=== PATIENT | female | born 1985 | race Caucasian/White ===

== ENCOUNTER → 2016-06-23 | Outpatient (CLI) | payer OTHER ==
--- NOTE | 2016-06-23 19:53 | DX ---
PA and Lateral Chest June 23, 2016 Clinical Indication: Follow up pneumonia. Comparison: April 21, 2016. Findings: There has been some overall improvement in the patchy bilateral lower lobar consolidations . There are still some mild increased reticulonodular densities as well as some linear areas of scar ring. Mild blunting is noted at the costophrenic angle laterally on the left. Impression: Persistent areas of bibasilar patchy consolidation. There has been significant improvem ent compared to April 21, 2016. Repeat chest x-ray follow up is recommended.
== END ==
LOC: FIMAGING 16:56
PROVIDERS: ATTEND Internal Medicine Pulmonary Disease
DX: J18.9 Pneumonia, unspecified organism (principal)

== ENCOUNTER 2016-07-08 21:39 | Inpatient (IN) | payer OTHER ==
[2016-07-08] MEDS ORDERED: NS 1,000 ML IV ONE (22:25)
--- NOTE | 2016-07-08 22:25 | EDPHY ---
HPI/HX/ROS/PE/MDM Narrative: CHIEF COMPLAINT: Fever, cough HPI: The patient is a 30-year-old female with extensive past medical history significant for autoimmune disease, possibly sarcoid, as well as multiple episodes of pneumonia, most recently hospitalized in April of last year. Patient complains of overall malaise, cough, low oxygen readings at home as well as tachycardia. She states that she coughed up a small amount of blood which is typical for her when she gets pneumonia. She is followed by Dr. Bo Grullon from Infectious Disease as well as Dr. Dotson. There is some disagreement as to whether her condition represents sarcoid or possibly immune deficiency. The patient is currently on a very low dose of prednisone and the plan is to fully wean her off of this REVIEW OF SYSTEMS: Aside from elements discussed in the HPI, a comprehensive 10-point review of systems was reviewed and is negative. PMH: Includes multiple episodes of pneumonia, possibly sarcoid or immunodeficiency. Past surgical history includes chest tube placement. Family history unremarkable. SOCIAL HISTORY: . 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 PHYSICAL EXAM: General:Patient is alert, in no acute distress. ENT:Eyes are normal to inspection. ENT inspection normal. Neck: Normal inspection. Full range of motion. Respiratory:No respiratory distress. Crackles are audible in the left posterior lobe. Cardiovascular: Tachycardic rate. Strong peripheral pulses. Normal cap refill. Abdomen:The abdomen is nontender to palpation. There are no peritoneal signs. There are normal bowel sounds. Back: Normal to inspection. No tenderness to palpation. Skin: Normal color. No rash. Warm and dry. Extremities: Normal appearance. Full range of motion. Neuro: Oriented x3. Normal motor function. Normal sensory function. ED Course: Patient admitted lip to hospitalist service at 10:40 p.m.. Based on normal lactic acid, lack of hypotension and lack of clear lab abnormalities from baseline, I do not think this represents severe sepsis or septic shock at this time. MDM: This patient presents with hypoxia and tachycardia in the setting of known immunosuppression, possible sarcoid and multiple episodes of multifocal pneumonia. Her chest x-ray is markedly positive and I suspect that pneumonia is the underlying etiology. Thankfully, her lactate is normal. She requires admission the hospital for further workup and treatment. I had extensive discussion with the hospitalist regarding possible stress dose steroids and antibiotic selection. We will defer both of these decisions to her. The patient is immunocompromised and we will need to consult ID to determine the appropriate antibiotic. - Data Points Laboratory Results: Laboratory Results 07/08/16 22:00 07/08/16 22:00 07/08/16 22:00 WBC 5.87 10^3/uL (3.80-9.50) RBC 4.59 10^6/uL (4.18-5.33) Hgb 12.0 L g/dL (12.6-16.3) Hct 37.5 L % (38.0-47.0) MCV 81.7 fL (81.5-99.8) MCH 26.1 L pg (27.9-34.1) MCHC 32.0 L g/dL (32.4-36.7) RDW 14.7 % (11.5-15.2) Plt Count 82 L 10^3/uL (150-400) MPV 11.3 fL (8.7-11.7) Neut % (Auto) Not Reported Lymph % (Auto) Not Reported [place] % (Auto) Not Reported Eos % (Auto) Not Reported Baso % (Auto) Not Reported Nucleat RBC Rel Count 0.0 % (0.0-0.2) Absolute Neuts (auto) Not Reported Absolute Lymphs (auto) Not Reported Absolute Monos (auto) Not Reported Absolute Eos (auto) Not Reported Absolute Basos (auto) Not Reported Absolute Nucleated RBC 0.00 10^3/uL (0-0.01) Immature Gran % Not Reported Seg Neutrophils % 36 % Band Neutrophils % 33 % Lymphocytes % 21 % Monocytes % 10 % Immature Gran # Not Reported Absolute Seg Neuts 2.11 10^/uL (1.70-6.50) Absolute Band Neuts 1.94 H 10^3/uL (0.00-0.70) Absolute Lymphocytes 1.23 10^3/uL (1.00-3.00) Absolute Monocytes 0.59 10^3/uL (0.30-0.80) RBC/WBC/PLT Morphology NORMAL (NORMAL) Platelet Estimate DECREASED L (ADEQ) VBG Lactic Acid 1.2 mmol/L (0.7-2.1) Sodium 132 L mEq/L (134-144) Potassium 3.6 mEq/L (3.5-5.2) Chloride 104 mEq/L (97-110) Carbon Dioxide 22 mEq/l (22-31) Anion Gap 6 mEq/L (8-16) BUN 16 mg/dL (7-23) Creatinine 0.9 mg/dL (0.6-1.0) Estimated GFR > 60 Glucose 111 H mg/dL (70-100) Calcium 8.3 L mg/dL (8.5-10.4) Total Bilirubin 1.2 mg/dL (0.1-1.4) Influenza Typ A,B (DFA) NEGATIVE FOR FLU (NEGATIVE) Medications Given: Discontinued Medications Sodium Chloride (Ns) 1,000 mls @ 0 mls/hr IV ONCE ONE PRN Reason: Wide Open Stop: 07/08/16 22:26 Last Admin: 07/08/16 22:29 Dose: 1,000 mls General Time Seen by Provider: 07/08/16 21:54 Initial Vital Signs: Initial Vital Signs Temperature (C) 37.3 C 07/08/16 21:55 Heart Rate 124 H 07/08/16 21:55 Respiratory Rate 18 07/08/16 21:55 Blood Pressure 119/79 07/08/16 21:55 O2 Sat (%) 92 07/08/16 21:55 O2 Delivery Mode Room Air O2 (L/minute) 2 Allergies/Adverse Reactions: No Known Allergies Allergy (Unverified 09/13/10 11:48) Home Medications: Medication Instructions Recorded Prednisone 07/08/16 Departure - Departure Disposition: [facility] In[facility] Acute Clinical Impression: Pneumonia, ESBL (extended spectrum beta-lactamase) producing bacteria infection , Hypoxia, Sarcoidosis Condition: Fair
[2016-07-08 22:33] LABS: ANION GAP 6 mEq/L (8-16); BILIRUBIN,TOTAL 1.2 mg/dL (0.1-1.4); CALCIUM 8.3 mg/dL (8.5-10.4); CARBON DIOXIDE 22 mEq/l (22-31); CHLORIDE 104 mEq/L (97-110); CREATININE 0.9 mg/dL (0.6-1.0); GLOMERULAR FILTRATION RATE > 60; GLUCOSE 111 mg/dL (70-100); POTASSIUM 3.6 mEq/L (3.5-5.2); SODIUM 132 mEq/L (134-144)
[2016-07-08 22:35] LABS: ADD MORPH? NO; ATYPICAL LYMPHOCYTE FLAG 30 (0-99); FRAGMENT RBC FLAG 0 (0-99); HEMATOCRIT 37.5 % (38.0-47.0); LIPEMIA HEMOLYSIS FLAG 80 (0-99); MEAN CELL HEMOGLOBIN 26.1 pg (27.9-34.1); MEAN CELL VOLUME 81.7 fL (81.5-99.8); MEAN PLATELET VOLUME 11.3 fL (8.7-11.7); PLATELET CLUMPS FLAG 20 (0-99); PLATELET COUNT 82 10^3/uL (150-400); RED BLOOD CELL COUNT 4.59 10^6/uL (4.18-5.33); RED CELL DISTRIBUTION WIDTH 14.7 % (11.5-15.2)
[2016-07-08 22:36] LABS: LEFT SHIFT FLG 270 (0-99)
[2016-07-08 22:37] LABS: ADD DIFF? YES; ADD SCAN? NO
--- NOTE | 2016-07-08 22:40 | DX ---
Chest, PA and lateral. History: Meet sepsis criteria, suspected infection. Shortness of breath. Comparison: June 23, 2016. Findings: Airspace consolidation is seen in both lungs which is particularly increased anteriorly in the right upper lobe. There is also more focal consolidation superiorly in the left lower lobe. There is increasing perihilar infiltrate and peribronchial wall thickening. No evidence for pleural effusi on. Heart size is within normal limits. No significant osseous abnormality. Impression: Worsening bilateral pneumonia with underlying bronchitis.
[2016-07-08 22:59] LABS: PLATELET ESTIMATE DECREASED (ADEQ)
[2016-07-08 23:04] LABS: COLOR YELLOW; LEUKOCYTE ESTERASE,URINE 2+ (NEGATIVE); NITRITE,URINE NEGATIVE (NEGATIVE)
[2016-07-08 23:06] LABS: BACTERIA 4+ /hpf (NONE SEEN); MUCUS TRACE /lpf (NONE-1+); WBC,URINE 50-182 /hpf (0-3)
[2016-07-08] MEDS ORDERED: HYDROCODONE/APAP 5/325 TAB PO PRN (23:20)
[2016-07-08] MEDS ORDERED: ALBUTEROL 3 ML DEYVIAL IH PRN (23:20)
[2016-07-08] MEDS ORDERED: ONDANSETRON 4 MG/2 ML VIAL IVP PRN (23:20)
[2016-07-08] MEDS ORDERED: ONDANSETRON DISINTEGRATING 4 MG TAB PO PRN (23:20)
[2016-07-08] MEDS ORDERED: ACETAMINOPHEN 500 MG TAB PO PRN (23:20)
[2016-07-09] MEDS: PIPERACILLIN/TAZO 4.5 GM/DEX 100 ML IV SCH ×4 (00:24→18:17)
[2016-07-09 00:40] LABS: BASE EXCESS -2.8 mEq/L (-2.5-2.5); BICARBONATE 19 mEq/L (22-26); MEASURED OXYGEN SATURATION 91 % (92-95); PCO2 27 mmHg (34-38); PO2 60 mmHg (65-75); TCO2 20 mEq/L (23-27)
[2016-07-09] MEDS ORDERED: IOPAMIDOL (ISOVUE 370) 100 ML BTL IV ONE ×2 (00:57→01:45)
[2016-07-09] MEDS ORDERED: VANCOMYCIN 1 GM/NS 250 ML BAG IV ONE (00:58)
[2016-07-09] MEDS ORDERED: VANCOMYCIN HCL/NORMAL SALINE 250 ML IV ONE (01:30)
[2016-07-09] MEDS ORDERED: ACETAMINOPHEN 500 MG TAB ONE (01:56)
[2016-07-09] MEDS ORDERED: ACETAMINOPHEN 500 MG TAB PO ONE (01:58)
--- NOTE | 2016-07-09 03:10 | PDGENHP ---
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 patient states symptoms started on the day of presentation, she woke up feeling generally unwell. As the day progressed she began noticing shortness of breath with minimal exertion, she developed a productive cough and any evening also noted if fever at home. Cough was productive of phlegm, which then became blood tinged over the course of the day. She felt her symptoms were consistent with her previous pneumonia so she decided to come to the ED for further evaluation. She does note pleuritic type mid-back pain, worse with deep inspiration, but denies any headache, dizziness, chest pain, palpitations, nausea, vomiting, diarrhea or dysuria/urinary symptoms. Patient was last hospitalized in April, for pneumonia. At that time she completed about a 1 month long course of antibiotics. 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 For treatment of her sarcoid she has been maintained on prednisone 4 mg every other day. on arrival to the ED patient was afebrile, slightly tachycardic and hypoxic but hemodynamically stable. Labs revealed no leukocytosis, but bandemia was present, mild hyponatremia, but otherwise normal BMP. Rapid flu swab was negative. Chest x-ray revealed an extensive multifocal pneumonia. she was then admitted to the hospitalist service for further management. Upon my evaluation patient was complaining of pleuritic-type back pain, she was tachycardic and also noted scant hemoptysis in her sputum. Given this D-dimer was checked, which was positive. CT angio was then ordered to rule out acute PE and to further evaluate the extent of and characterize her pneumonia. History Information - Allergies/Home Medication List Allergies/Adverse Reactions: No Known Allergies Allergy (Unverified 09/13/10 11:48) Home Medications: Prednisone 07/08/16 [Last Taken Unknown] I have personally reviewed and updated: family history, medical history, social history, surgical history - Past Medical History Additional medical history: sarcoidosis, diagnosed in childhood, pulmonary an extrapulmonary manifestations. immunocompromised state, exact diagnosis pending. 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 Lives with her and is independent in ADLs. Review of Systems ROS: 10pt was reviewed & negative except for what was stated in HPI & below Physical Exam Temp Pulse Resp BP Pulse Ox 36.9 C 113 H 17 126/77 H 91 L 07/09/16 02:12 07/09/16 02:12 07/09/16 02:12 07/09/16 02:12 07/09/16 02:12 O2 (L/minute) 3 Constitutional: no apparent distress, appears nourished, not in pain Eyes: PERRL, anicteric sclera, EOMI Ears, Nose, Mouth, Throat: moist mucous membranes, hearing normal, ears appear normal, no oral mucosal ulcers Cardiovascular: regular rate and rhythym, no murmur, rub, or gallop, pulses symmetric bilaterally, tachycardia, No JVD, No edema Peripheral Pulses: 2+: dorsalis-pedis (R), dorsalis-pedis (L) Respiratory: rhonchi (R>L lung roper), other ( mild use of accessary muscles) Gastrointestinal: normoactive bowel sounds, soft, non-tender abdomen, no palpable masses Genitourinary: no bladder fullness, no bladder tenderness Skin: warm, normal color, no rashes or abrasions, no fluctuance, no induration, No mottled Neurologic: AAOx3, sensation intact bilaterally, CN II-XII Intact, No weakness, No numbness Psychiatric: interacting appropriately, not anxious, not encephalopathic, thought process linear Lab Data & Imaging Review 07/08/16 22:00 07/08/16 22:00 WBC 5.87 10^3/uL (3.80-9.50) 07/08/16 22:00 RBC 4.59 10^6/uL (4.18-5.33) 07/08/16 22:00 Hgb 12.0 g/dL (12.6-16.3) L 07/08/16 22:00 Hct 37.5 % (38.0-47.0) L 07/08/16 22:00 MCV 81.7 fL (81.5-99.8) 07/08/16 22:00 MCH 26.1 pg (27.9-34.1) L 07/08/16 22:00 MCHC 32.0 g/dL (32.4-36.7) L 07/08/16 22:00 RDW 14.7 % (11.5-15.2) 07/08/16 22:00 Plt Count 82 10^3/uL (150-400) L 07/08/16 22:00 MPV 11.3 fL (8.7-11.7) 07/08/16 22:00 Neut % (Auto) Not Reported 07/08/16 22:00 Lymph % (Auto) Not Reported 07/08/16 22:00 [place] % (Auto) Not Reported 07/08/16 22:00 Eos % (Auto) Not Reported 07/08/16 22:00 Baso % (Auto) Not Reported 07/08/16 22:00 Nucleat RBC Rel Count 0.0 % (0.0-0.2) 07/08/16 22:00 Absolute Neuts (auto) Not Reported 07/08/16 22:00 Absolute Lymphs (auto) Not Reported 07/08/16 22:00 Absolute Monos (auto) Not Reported 07/08/16 22:00 Absolute Eos (auto) Not Reported 07/08/16 22:00 Absolute Basos (auto) Not Reported 07/08/16 22:00 Absolute Nucleated RBC 0.00 10^3/uL (0-0.01) 07/08/16 22:00 Immature Gran % Not Reported 07/08/16 22:00 Seg Neutrophils % 36 % 07/08/16 22:00 Band Neutrophils % 33 % 07/08/16 22:00 Lymphocytes % 21 % 07/08/16 22:00 Monocytes % 10 % 07/08/16 22:00 Immature Gran # Not Reported 07/08/16 22:00 Absolute Seg Neuts 2.11 10^/uL (1.70-6.50) 07/08/16 22:00 Absolute Band Neuts 1.94 10^3/uL (0.00-0.70) H 07/08/16 22:00 Absolute Lymphocytes 1.23 10^3/uL (1.00-3.00) 07/08/16 22:00 Absolute Monocytes 0.59 10^3/uL (0.30-0.80) 07/08/16 22:00 RBC/WBC/PLT Morphology NORMAL (NORMAL) 07/08/16 22:00 Platelet Estimate DECREASED (ADEQ) L 07/08/16 22:00 D-Dimer 1.58 ug/mLFEU (0.00-0.50) H 07/08/16 22:09 Puncture Site NONE GIVEN 07/09/16 00:30 Patient Temperature 37.0 DEGREES 07/09/16 00:30 pCO2 27 mmHg (34-38) L 07/09/16 00:30 pO2 60 mmHg (65-75) L 07/09/16 00:30 Total CO2 20 mEq/L (23-27) L 07/09/16 00:30 ABG pH 7.48 (7.35-7.45) H 07/09/16 00:30 ABG O2 Saturation 91 % (92-95) L 07/09/16 00:30 ABG Base Excess -2.8 mEq/L (-2.5-2.5) L 07/09/16 00:30 VBG Lactic Acid 1.2 mmol/L (0.7-2.1) 07/08/16 22:00 Sodium 132 mEq/L (134-144) L 07/08/16 22:00 Potassium 3.6 mEq/L (3.5-5.2) 07/08/16 22:00 Chloride 104 mEq/L (97-110) 07/08/16 22:00 Carbon Dioxide 22 mEq/l (22-31) 07/08/16 22:00 Bicarbonate 19 mEq/L (22-26) L 07/09/16 00:30 Anion Gap 6 mEq/L (8-16) 07/08/16 22:00 BUN 16 mg/dL (7-23) 07/08/16 22:00 Creatinine 0.9 mg/dL (0.6-1.0) 07/08/16 22:00 Estimated GFR > 60 07/08/16 22:00 Glucose 111 mg/dL (70-100) H 07/08/16 22:00 Calcium 8.3 mg/dL (8.5-10.4) L 07/08/16 22:00 Total Bilirubin 1.2 mg/dL (0.1-1.4) 07/08/16 22:00 Urine Color YELLOW 07/08/16 22:58 Urine Appearance HAZY 07/08/16 22:58 Urine pH 5.0 (5.0-7.5) 07/08/16 22:58 Ur Specific [place] 1.012 (1.002-1.030) 07/08/16 22:58 Urine Protein NEGATIVE (NEGATIVE) 07/08/16 22:58 Urine Ketones NEGATIVE (NEGATIVE) 07/08/16 22:58 Urine Blood NEGATIVE (NEGATIVE) 07/08/16 22:58 Urine Nitrate NEGATIVE (NEGATIVE) 07/08/16 22:58 Urine Bilirubin NEGATIVE (NEGATIVE) 07/08/16 22:58 Urine Urobilinogen NEGATIVE EU (0.2-1.0) 07/08/16 22:58 Ur Leukocyte Esterase 2+ (NEGATIVE) H 07/08/16 22:58 Urine RBC 1-3 /hpf (0-3) 07/08/16 22:58 Urine WBC 50-182 /hpf (0-3) H 07/08/16 22:58 Ur Epithelial Cells TRACE /lpf (NONE-1+) 07/08/16 22:58 Urine Bacteria 4+ /hpf (NONE SEEN) H 07/08/16 22:58 Urine Mucus TRACE /lpf (NONE-1+) 07/08/16 22:58 Urine Glucose NEGATIVE (NEGATIVE) 07/08/16 22:58 Urine Test NEGATIVE 07/08/16 22:58 Influenza Typ A,B (DFA) NEGATIVE FOR FLU (NEGATIVE) 07/08/16 22:00 Visualized and Interpreted Chest x-ray results: Yes Chest X-Ray results: other (dense consolidation in RUL, LLL) Visualized and Interpreted imaging results: Yes Interpretation: CT chest: no acute PE; multifocal pna with no evidence of empyema Assessment & Plan Assessment: patient is a 30-year-old female with a history of sarcoidosis, immunocompromised state, recurrent pneumonia who presents to the ED complaining of fever, cough, shortness of breath. His ED workup reveals extensive bilateral , multifocal pneumonia. Plan: # sepsis secondary to multilobar pneumonia On presentation patient was tachycardic, tachypneic and with evidence of infection on chest x-ray, consistent with sepsis. based on chest x-ray and CT findings, distribution of infiltrates is different from previous pneumonias. given patient's immunocompromised state, we will cover broadly for healthcare associated pneumonia (Presumed gram-negative versus MRSA pneumonia). - f/u blood and sputum cultures - check legionella, strep pneu ag - consult pulmonary and ID - Vanc/Zosyn coverage - IVF hydration: NS @ 100 cc/hr - check AM lactic acid # acute hypoxemic respiratory failure Patient hypoxic on presentation and ABG confirms hypoxemia. Will maintain NC, can upgrade to high-flow NC or BIPAP if necessary. # thrombocytopenia Chronic, appears to be at baseline based on previous admission levels. Will monitor for signs of bleeding. # sarcoidosis On chronic low dose prednisone. Currently hemodynamically stable, will hold off on stress dose steroids at this time. If any evidence of decompensation, will increase steroid dosing. # dispo: patient will likely require > 2 MN stay given the extensive multilobar pneumonia and acute respiratory failure # gen: Regular diet DVT ppx: SCDs, will hold lovenox given thrombocytopenia Full code
[2016-07-09 05:56] LABS: ADD MORPH? NO; ATYPICAL LYMPHOCYTE FLAG 30 (0-99); FRAGMENT RBC FLAG 0 (0-99); HEMATOCRIT 31.7 % (38.0-47.0); HEMOGLOBIN 10.5 g/dL (12.6-16.3); LIPEMIA HEMOLYSIS FLAG 80 (0-99); MEAN CELL HEMOGLOBIN 27.2 pg (27.9-34.1); MEAN CELL HEMOGLOBIN CONCENTR. 33.1 g/dL (32.4-36.7); MEAN CELL VOLUME 82.1 fL (81.5-99.8); MEAN PLATELET VOLUME 12.4 fL (8.7-11.7); PLATELET CLUMPS FLAG 20 (0-99); PLATELET COUNT 75 10^3/uL (150-400); RED BLOOD CELL COUNT 3.86 10^6/uL (4.18-5.33); RED CELL DISTRIBUTION WIDTH 14.8 % (11.5-15.2)
[2016-07-09 06:09] LABS: ADD DIFF? YES; ADD SCAN? NO; LEFT SHIFT FLG 130 (0-99)
[2016-07-09 06:10] LABS: INR 1.37 (0.83-1.16); PROTIME(PATIENT) 16.9 SEC (12.0-15.0)
[2016-07-09 06:11] LABS: APTT 36.8 SEC (23.0-38.0)
[2016-07-09 06:13] LABS: ANION GAP 7 mEq/L (8-16); CALCIUM 7.6 mg/dL (8.5-10.4); CARBON DIOXIDE 23 mEq/l (22-31); CHLORIDE 106 mEq/L (97-110); GLOMERULAR FILTRATION RATE > 60; GLUCOSE 95 mg/dL (70-100); MAGNESIUM 1.5 mg/dL (1.6-2.3); POTASSIUM 3.2 mEq/L (3.5-5.2); SODIUM 136 mEq/L (134-144)
[2016-07-09] MEDS ORDERED: PROTOCOL MAGNESIUM 1 DOSE IV PRN (06:43)
[2016-07-09] MEDS ORDERED: PROTOCOL POTASSIUM 1 DOSE MISC PRN (06:43)
[2016-07-09] MEDS ORDERED: Herbals/Supplements -Info Only PO SCH (09:00)
--- NOTE | 2016-07-09 09:32 | CT ---
CT Chest Angiogram July 09, 2016 at 1:41 a.m. Indication: Bronchopneumonia and history of sarcoidosis. Evaluate for underlying pulmonary embolism. Technique: Thinly collimated multidetector helical CT imaging was performed through the chest while 150 mL of [id number]-[id number] were injected intravenously without complication. The images were then transfer red to an independent workstation where multiplanar reconstructions were performed. Dose reduction te chniques were utilized. Comparison: CT angiogram of the chest dated April 17, 2016 and two views of the chest performed fou r hours earlier on July 08, 2016. Findings CT chest angiogram: The pulmonary arterial system is well opacified. No intraluminal filling defect s to suggest acute or chronic thrombopulmonary embolic disease. The thoracic aorta is normal caliber . No aneurysm or dissection. CT chest: Dense multilobar airspace consolidation principally involves the posterior segment right up per lobe, posterior segment left lower lobe, and bibasilar lower lobes, worse right than left. No cav itation or pleural effusion. Moderate interstitial edema as evidenced by smooth interlobar septal thi ckening, thickening of the fissures, and diffuse groundglass opacities. Scattered noncalcified pulmonary nodules throughout the right and left lung, lymphadenopathy througho ut the superior mediastinum, aorticopulmonary window, subcarinal chain and bilateral pulmonary jerilyn, and moderate splenomegaly are all unchanged and consistent with known diagnosis of sarcoidosis. The heart size is normal. No pericardial effusion. The thoracic aorta is normal. No bone lesions. Impression: 1. No evidence of thrombopulmonary embolic disease. 2. Dense multifocal bronchopneumonia, worse in the right upper lobe. No evidence of pulmonary abscess or empyema. 3. Mild interstitial edema. 4. Features of stage II sarcoidosis, similar to April 2016. The study was performed as an emergency on-call case and discussed by telephone with Dr. Landin at 2:05 a.m. The final interpretation is concordant with the original communication.
[2016-07-09] MEDS: predniSONE 5 MG TAB PO SCH (09:57)
[2016-07-09] MEDS: MULTIVITAMINS 1 EACH TAB PO SCH (09:58)
[2016-07-09] MEDS: OMEGA-3 FATTY ACIDS 1,000 MG CAP PO SCH (09:59)
[2016-07-09] MEDS ORDERED: MOXIFLOXACIN 400 MG TAB PO SCH (10:00)
[2016-07-09 10:07] LABS: PLATELET ESTIMATE DECREASED (ADEQ)
[2016-07-09 10:09] LABS: ELLIPTOCYTES 1+
--- NOTE | 2016-07-09 11:00 | GCON ---
[f rep st] CONSULTATION INFECTIOUS DISEASE CONSULT. DATE OF CONSULTATION: 07/09/2016 REFERRING PHYSICIAN: Libertad Landin MD REASON FOR CONSULTATION: To assist in the management of this 30-year-old female well known to our service, admitted for multilobar pneumonia. HISTORY OF PRESENT ILLNESS: Anastasiya is a 30-year-old female who previous medical history is notable for the followin. Sarcoidosis. As I understand it, the patient was diagnosed with sarcoid at the age of 14 at [facility] when she presented with fevers, lymphadenopathy, and splenomegaly. The diagnosis was made by a lymph node biopsy in her groin by report. She has been followed over at [facility] since then. However, the patient tells me that this diagnosis is in question presently as Dr. Dotson, whom she has been seeing for an immunoglobulin deficiency, does not feel that she really has this diagnosis. The patient is on low dose prednisone 4 mg every other day chronically. 2. History of skin and soft tissue infection secondary to MRSA 2015. 3. Recent invasive pneumococcal pneumonia with bloodstream infection, April 2016. 4. Hypogammaglobulinemia and elevated levels of IgM diagnosed during her hospitalization in April. 5. History of recurrent vaginal candidiasis. 6. History of ESBL E. coli urinary tract infection. 7. Thrombocytopenia. Regarding her present issues, the patient states that she was in her usual state of health until yesterday when she felt the sudden onset of fever to 102.5 and significant fatigue. Later in the afternoon, she began to cough, and later last evening she noted that her oxygen saturation was down to 91% with an elevated heart rate. The patient also reports an episode of rigors yesterday morning, for which she took Motrin and rigors resolved. Because of the hypoxemia and elevated heart rate and new onset of blood-tinged sputum and development of a productive cough, the patient came to [facility] for further evaluation and treatment. Of note, the patient told me "whenever I do any activity that is strenuous, this happens to me." She states that in April when she was last admitted for pneumococcal pneumonia and bacteremia, she had "danced really hard." This time, the patient tells me that she recently closed on a brand new home in [place] 2 days ago, and was up late on Sunday night, and moving all day yesterday, heavily exerting herself. She strongly feels that this has been influential in the development of this illness. At [facility], the patient had a temperature of 37.3 with an oxygen saturation of 89% on room air. Blood pressure was stable. Because a D- dimer was positive, she underwent a CT angio of her chest which revealed no evidence of thromboembolic pulmonary disease, but revealed dense multifocal bronchopneumonia, worse in the right upper lobe, with no evidence of cavitary lesions, or empyema or pleural effusions. The patient was admitted to the hospitalist service and started on broad- spectrum antibiotics in the form of vancomycin and Zosyn. I am now asked to assist in her management. Flu DFA was negative. The patient says she feels much better today. She states that again this was an abrupt onset of symptoms. She denies any antecedent night sweats, weight loss, or other more insidious presentation. She denies any myalgias, antecedent upper respiratory infection, sore throat, or other. Please see below regarding negative exposure history. She denies any diarrhea, nausea, vomiting or other. REVIEW OF SYSTEMS: From the increased productive cough and mild headache, 10 systems are reviewed and all are negative. PREVIOUS MEDICAL HISTORY: As outlined above. ALLERGIES: No known drug allergies. SOCIAL HISTORY: The patient works in the [employer] department. 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 She recently purchased a [employer] in [place]. They have no pets. The patient states that her was sick 2 weeks ago with a cold, but she did not get this illness. No tobacco. No exposure to secondhand smoke and no electronic cigarettes. No exposure to hot tubs, Jacuzzis, saunas, and no recent motel or hotel stays. No exposure to birds. She does not do any trail running. No other exposure to animals. She is not around small children. No recent travel within or outside the [place]. No exposure to mice or rodent droppings. She did not get a flu vaccine this year. FAMILY HISTORY: Unremarkable. MEDICATIONS: Include prednisone 4 mg every other day. If she is also presently on vancomycin and Zosyn. PHYSICAL EXAM: VITAL SIGNS: T currently is 36.8, T-max 37.3, heart rate 68, blood pressure 93/56, 95% on 3 L. GENERAL: Well-nourished well-developed female, lying in bed, nontoxic appearing. No apparent distress. She is not coughing during my exam and interview. HEENT: Atraumatic, normocephalic. Pupils equal, round, reactive to light. Extraocular movements are intact. No conjunctival injection. No icterus or petechiae. She is wearing glasses. No sinus process tenderness or discharge from the nares. Mucous membranes moist. Excellent dentition. No oral lesions noted. NECK: Trachea is midline. No thyromegaly. No supraclavicular or axillary adenopathy. CARDIOVASCULAR: S1 and S2. No rubs gallops or murmurs. No tachycardia. LUNGS: Crackles bilateral lung bases, left greater than right, no wheezing. No egophony. No rub. ABDOMEN: Soft. No organomegaly or tenderness to palpation. EXTREMITIES : No clubbing, cyanosis, or edema. No muscle belly tenderness or evidence of arthritis. She is perfusing nicely with warm extremities. No stigmata of endocarditis. SKIN: Warm and dry. No rashes. NEUROLOGIC: She is alert and oriented x3. She is moving all 4 extremities. LABORATORY DATA: Blood cultures x2 are pending. White blood cell count of 3.8 , hematocrit 31.7, platelet count of 75, 33% bands yesterday. BUN and creatinine 14/1.0, AST 29, ALT of 40, alkaline phosphatase 68, albumin of 3.1. Flu DFA is negative. Pneumococcal strep pneumoniae urine antigen pending. Aspergillus pending. RADIOGRAPHIC DATA: CT finding as outlined in the HPI. IMPRESSION: 30-year-old immunocompromised female with history of sarcoidosis and recent diagnosis of immunoglobulin deficiency, now admitted for multilobar pneumonia. The patient's symptoms came on abruptly intimating a bacterial process. She is certainly at risk for recurrent pneumococcal disease. I feel that a more resistant gram-negative process and Methicillin-resistant Staphylococcus aureus pneumonia seem less likely, as do other processes such as tuberculosis or fungal disease. PLAN: 1. Will change vancomycin and piperacillin/tazobactam to moxifloxacin p.o. 2. Check influenza PCR for completeness sake. 3. Blood cultures are pending. 4. Continue contact isolation given history of ESBL E coli. I do not feel additional testing, such as a viral respiratory panel or mycoplasma serologies, etc. are necessary. Thank you very much for consulting Infectious Diseases. We will continue to follow this patient with you. The patient's primary infectious disease doctor, Dr. Bo Grullon, will be back tomorrow. /[id number]/MODL MTDD
--- NOTE | 2016-07-09 13:01 | PCMIDPN ---
Assessment/Plan: 1. Gram-negative kirit bacteremia: Given the patient's history of ESBL E coli, will resume Zosyn (the isolate has been susceptible to this antibiotic and resistant to the quinolones) and discontinue moxifloxacin. Urinalysis from last evening shows pyuria, but the patient has no symptoms. Urine culture sent. The lab reports they should have a preliminary identification of the organism in the next hour or 2. 2. Multilobar pneumonia: Now back on Zosyn as per 1. 07/09/16 13:01 Subjective: I was notified by the lab the patient has gram-negative rods in a blood culture obtained yesterday. Please see plan below. Objective: Vital Signs Temp Pulse Resp BP Pulse Ox 36.6 C 85 20 112/75 94 07/09/16 11:48 07/09/16 11:48 07/09/16 11:48 07/09/16 11:48 07/09/16 11:48 Laboratory Results 07/09/16 04:19 07/09/16 04:19 07/08/16 07/09/16 07/10/16 05:59 05:59 05:59 Intake Total 1850 Output Total 300 Balance 1550 ICD10 Worksheet Patient Problems: Problems Problem Status Diagnosed ESBL (extended spectrum beta-lactamase) producing bacteria infection Acute 02/14 Hypoxia Acute Pneumonia Acute Sarcoidosis Acute MRSA - Methicillin resistant Staphylococcus aureus infection Active Pleural effusion Acute Respiratory failure Acute Sepsis Acute Thrombocytopenia Acute
[2016-07-09] MEDS: NS 1,000 ML IV SCH (13:20)
--- NOTE | 2016-07-09 13:49 | HOSPPROG ---
Hospitalist Progress Note Assessment/Plan: Assessment: 30-year-old p/w acute hypoxic respiratory failure, GNR bacteremia and multilobar pneumonia in setting of immunocompromise w/ sarcoid Plan: # GNR bacteremia. POA, hx of ESBL (outside records reviewed, micro 05/29/16 urine ESBL w/ fluoroquin and cefepime resistance), cont Zosyn - will get f/u BCx tomorrow AM - appreciate ID consultation # Suspected GNR multilobar pneumonia. Acute, new problem, further w/u indicated. Evidenced by dense bilat multifocal airspace disease (personally interpreted CT) w/ resp failure, and underlying immunocompromised state - initially on Vanco/Zosyn, transitioned to Moxi, now back on Zosyn re: GNR bacteremia - uLeg/uStrep pending - Sputum Cx pending, get IG levels, get flu PCR - cont o2 # Acute hypoxic respiratory failure. Evidenced by SpO2 89% on room air (P:F 206 , which is moderate acute lung injury) w/ symptomatic labored breathing/ shortness of breath, reported tachypnea, 2/2 dense air space disease from pneumonia - requiring 2-3L NC, o2 monitoring # Sarcoidosis. Chronic, chronic immunocompromised state w/ nodularity noted on chest CT - get IG panel to determine whether IVIG indicated - cont on prednisone, increase to 5mg daily to prevent relative adrenal insufficiency # Thrombocytopenia. Chronic, appears to be at baseline based on previous admission levels. Will monitor for signs of bleeding. Diet. Regular PPx. Mod risk, SCDs, pharm contraindicated Code. Full Dispo. ADD uncertain, pending stabilization of above Subjective: Reports that breathing has significantly improved from day prior Objective: Vital Signs Temp Pulse Resp BP Pulse Ox 36.6 C 85 20 112/75 94 07/09/16 11:48 07/09/16 11:48 07/09/16 11:48 07/09/16 11:48 07/09/16 11:48 Laboratory Results 07/09/16 04:19 07/09/16 04:19 07/08/16 07/09/16 07/10/16 05:59 05:59 05:59 Intake Total 1850 Output Total 300 Balance 1550 PT 16.9 SEC (12.0-15.0) H 07/09/16 04:19 INR 1.37 (0.83-1.16) H 07/09/16 04:19 - Physical Exam Constitutional: no apparent distress, appears nourished, not in pain, uncomfortable Cardiovascular: regular rate and rhythym, no murmur, rub, or gallop, No irregularly irregular, No tachycardia, No edema Respiratory: reduced air movement (Right inferolateral segment), rhonchi ( Bilaterally on inspiration), No expiratory wheeze, No bronchial breath sounds Gastrointestinal: normoactive bowel sounds, soft, non-tender abdomen, no palpable masses Skin: no rashes or abrasions, no fluctuance, no induration Neurologic: AAOx3, sensation intact bilaterally Psychiatric: interacting appropriately, not anxious, not encephalopathic, thought process linear ICD10 Worksheet Patient Problems: Problems Problem Status Diagnosed ESBL (extended spectrum beta-lactamase) producing bacteria infection Acute 02/14 Hypoxia Acute Pneumonia Acute Sarcoidosis Acute MRSA - Methicillin resistant Staphylococcus aureus infection Active Pleural effusion Acute Respiratory failure Acute Sepsis Acute Thrombocytopenia Acute
[2016-07-10] MEDS: PIPERACILLIN/TAZO 4.5 GM/DEX 100 ML IV SCH ×4 (00:07→17:08)
[2016-07-10] MEDS: NS 1,000 ML IV SCH ×2 (00:11→11:33)
[2016-07-10 05:09] LABS: ADD DIFF? NO; ADD MORPH? NO; ADD SCAN? NO; ATYPICAL LYMPHOCYTE FLAG 0 (0-99); FRAGMENT RBC FLAG 0 (0-99); LEFT SHIFT FLG 70 (0-99); LIPEMIA HEMOLYSIS FLAG 80 (0-99); MEAN CELL HEMOGLOBIN 26.4 pg (27.9-34.1); MEAN CELL HEMOGLOBIN CONCENTR. 31.3 g/dL (32.4-36.7); MEAN CELL VOLUME 84.4 fL (81.5-99.8); MEAN PLATELET VOLUME 11.8 fL (8.7-11.7); PLATELET CLUMPS FLAG 10 (0-99); PLATELET COUNT 61 10^3/uL (150-400); RED BLOOD CELL COUNT 3.79 10^6/uL (4.18-5.33); RED CELL DISTRIBUTION WIDTH 14.8 % (11.5-15.2)
[2016-07-10 05:25] LABS: ANION GAP 4 mEq/L (8-16); CALCIUM 7.8 mg/dL (8.5-10.4); CARBON DIOXIDE 23 mEq/l (22-31); CHLORIDE 113 mEq/L (97-110); CREATININE 0.9 mg/dL (0.6-1.0); GLOMERULAR FILTRATION RATE > 60; GLUCOSE 81 mg/dL (70-100); POTASSIUM 3.9 mEq/L (3.5-5.2); SODIUM 140 mEq/L (134-144)
[2016-07-10] MEDS: MULTIVITAMINS 1 EACH TAB PO SCH (08:52)
[2016-07-10] MEDS: OMEGA-3 FATTY ACIDS 1,000 MG CAP PO SCH (08:52)
[2016-07-10] MEDS: predniSONE 5 MG TAB PO SCH (09:11)
--- NOTE | 2016-07-10 14:34 | HOSPPROG ---
Hospitalist Progress Note Assessment/Plan: Assessment: 30-year-old p/w acute hypoxic respiratory failure, GNR bacteremia and multilobar pneumonia in setting of immunocompromise w/ sarcoid Plan: # Serratia bacteremia. POA, hx of ESBL (outside records reviewed, micro urine ESBL w/ fluoroquin and cefepime resistance), cont Zosyn - will get f/u BCx today - appreciate ID consultation - if diarrhea worsens, send C diff PCR # Suspected Serratia multilobar pneumonia. Evidenced by dense bilat multifocal airspace disease (personally interpreted CT) w/ resp failure, and underlying immunocompromised state - initially on Vanco/Zosyn, transitioned to Moxi, now back on Zosyn re: GNR bacteremia - uLeg/uStrep pending - Sputum Cx pending, IG levels pending - cont o2 # Acute hypoxic respiratory failure. Evidenced by SpO2 89% on room air (P:F 206 , which is moderate acute lung injury) w/ symptomatic labored breathing/ shortness of breath, reported tachypnea, 2/2 dense air space disease from pneumonia - requiring 2-3L NC, o2 monitoring - IS # Sarcoidosis. Chronic, chronic immunocompromised state w/ nodularity noted on chest CT - IG panel pending - cont on prednisone, readjusted to home dosing # Thrombocytopenia. Chronic, appears to be at baseline based on previous admission levels. Will monitor for signs of bleeding. Diet. Regular PPx. Mod risk, SCDs, pharm contraindicated Code. Full Dispo. ADD 07/12, pending neg BCx drawn today Subjective: Reports that she has some exertional shortness of breath, diarrhea Objective: Vital Signs Temp Pulse Resp BP Pulse Ox 36.4 C 82 18 120/81 H 90 L 07/10/16 13:06 07/10/16 13:06 07/10/16 13:06 07/10/16 13:06 07/10/16 13:06 Microbiology 07/09/16 09:55 - Final Sputum, Expectorated Laboratory Results 07/10/16 04:20 07/10/16 04:20 07/09/16 07/10/16 07/11/16 05:59 05:59 05:59 Intake Total 1850 2700 Output Total 300 Balance 1550 2700 PT 16.9 SEC (12.0-15.0) H 07/09/16 04:19 INR 1.37 (0.83-1.16) H 07/09/16 04:19 - Physical Exam Constitutional: no apparent distress, appears nourished, not in pain, No uncomfortable Cardiovascular: regular rate and rhythym, no murmur, rub, or gallop, No irregularly irregular, No tachycardia, No edema Respiratory: reduced air movement (Bilateral bases posteriorly), rhonchi (On inspiration bilaterally diffusely throughout), No expiratory wheeze, No bronchial breath sounds Gastrointestinal: normoactive bowel sounds, soft, non-tender abdomen, no palpable masses Neurologic: AAOx3 Psychiatric: interacting appropriately, not anxious, not encephalopathic, thought process linear ICD10 Worksheet Patient Problems: Problems Problem Status Diagnosed ESBL (extended spectrum beta-lactamase) producing bacteria infection Acute 02/14 Hypoxia Acute Pneumonia Acute Sarcoidosis Acute MRSA - Methicillin resistant Staphylococcus aureus infection Active Pleural effusion Acute Respiratory failure Acute Sepsis Acute Thrombocytopenia Acute
--- NOTE | 2016-07-10 18:23 | PCMIDPN ---
Assessment/Plan: Assessment/Plan: * Sepsis due to Serratia bacteremia: Considerations include urinary etiology versus due to multilobar pneumonia. Clinically has improved with antibiotic therapy. Continue Zosyn pending susceptibility profile. Follow-up urine culture identification. Repeat blood cultures to document clearing of bacteremia. * Multilobar pneumonia: Doing well clinically without need for O2. Previous history of recurrent invasive pneumococcal disease. Unclear if this is due to Serratia given its isolation in blood cultures although remains at risk for typical pathogens of community-acquired pneumonia. 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 Given the recurrent nature of her bacteremia and profoundly depressed IgG levels, think she will benefit from IVIG replacement. She is scheduled to have follow-up with an resident care manager at the [facility] in July to further assess. Patient will discuss IVIG replacement with gallo and anticipate beginning replacement tomorrow. * History of ESBL E coli: Continue contact precautions. 07/10/16 18:19 07/10/16 18:23 07/10/16 18:24 Subjective: Feels much better. Cough has decreased significantly. No urinary tract symptoms. Objective: Vital Signs Temp Pulse Resp BP Pulse Ox 36.5 C 86 16 114/72 89 L 07/10/16 15:33 07/10/16 15:33 07/10/16 15:33 07/10/16 15:33 07/10/16 15:33 Microbiology 07/09/16 09:55 - Final Sputum, Expectorated Laboratory Results 07/10/16 04:20 07/10/16 04:20 07/09/16 07/10/16 07/11/16 05:59 05:59 05:59 Intake Total 1850 2700 200 Output Total 300 Balance 1550 2700 200 - Physical Exam General Appearance: alert, no apparent distress EENT: pharynx normal, No scleral icterus, No conjunctival petechiae Respiratory: crackles (Bilaterally), No respiratory distress Neck: supple Cardiac/Chest: regular rate, rhythm Extremities: No inflammation Abdomen: non-tender, No distended Skin: No rash ICD10 Worksheet Patient Problems: Problems Problem Status Diagnosed ESBL (extended spectrum beta-lactamase) producing bacteria infection Acute 02/14 Hypoxia Acute Pneumonia Acute Sarcoidosis Acute MRSA - Methicillin resistant Staphylococcus aureus infection Active Pleural effusion Acute Respiratory failure Acute Sepsis Acute Thrombocytopenia Acute
[2016-07-11] MEDS: PIPERACILLIN/TAZO 4.5 GM/DEX 100 ML IV SCH ×2 (00:45→05:46)
[2016-07-11 06:00] LABS: % IMMATURE GRANULYOCYTES 0.4 % (0.0-1.1); ABSOLUTE IMMATURE GRANULOCYTES 0.01 10^3/uL (0.00-0.10); ADD DIFF? NO; ADD MORPH? NO; ADD SCAN? NO; ATYPICAL LYMPHOCYTE FLAG 0 (0-99); FRAGMENT RBC FLAG 0 (0-99); HEMATOCRIT 32.6 % (38.0-47.0); HEMOGLOBIN 10.5 g/dL (12.6-16.3); LEFT SHIFT FLG 10 (0-99); LIPEMIA HEMOLYSIS FLAG 80 (0-99); MEAN CELL HEMOGLOBIN CONCENTR. 32.2 g/dL (32.4-36.7); MEAN CELL VOLUME 83.8 fL (81.5-99.8); MEAN PLATELET VOLUME 11.6 fL (8.7-11.7); PLATELET CLUMPS FLAG 0 (0-99); PLATELET COUNT 82 10^3/uL (150-400); RED BLOOD CELL COUNT 3.89 10^6/uL (4.18-5.33); RED CELL DISTRIBUTION WIDTH 14.9 % (11.5-15.2)
[2016-07-11 06:11] LABS: ANION GAP 4 mEq/L (8-16); CALCIUM 7.7 mg/dL (8.5-10.4); CARBON DIOXIDE 23 mEq/l (22-31); CHLORIDE 113 mEq/L (97-110); CREATININE 0.9 mg/dL (0.6-1.0); GLOMERULAR FILTRATION RATE > 60; GLUCOSE 75 mg/dL (70-100); SODIUM 140 mEq/L (134-144)
[2016-07-11] MEDS: OMEGA-3 FATTY ACIDS 1,000 MG CAP PO SCH (09:01)
[2016-07-11] MEDS: MULTIVITAMINS 1 EACH TAB PO SCH (09:01)
[2016-07-11] MEDS: ENOXAPARIN 40 MG/0.4 ML SYR SC SCH (09:49)
[2016-07-11] MEDS ORDERED: ERTAPENEM 1 GM in NS 100 ML IV SCH (10:00)
[2016-07-11] MEDS ORDERED: IMMUNE GLOBULIN 20 GM/200 ML VIAL IV ONE (10:22)
[2016-07-11] MEDS ORDERED: IBUPROFEN 800 MG TAB PO ONE (10:24)
[2016-07-11] MEDS ORDERED: IMMUNE GLOBULIN IV ONE (10:30)
[2016-07-11] MEDS ORDERED: IMMUNE GLOBULIN 100 ML IV ONE (10:30)
[2016-07-11] MEDS ORDERED: predniSONE 10 MG TAB PO ONE (11:36)
--- NOTE | 2016-07-11 11:37 | PCMIDPN ---
Assessment/Plan: Assessment/Plan: * Sepsis due to Serratia bacteremia: Suspect etiology is multilobar pneumonia given urine culture shows growth of ESBL producing E coli. Ultimately can complete therapy with oral fluoroquinolone based on susceptibility profile. * Multilobar pneumonia: See above discussion. 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 Given the recurrent nature of her bacteremia and profoundly depressed IgG levels, think she will benefit from IVIG replacement. Will begin replacement therapy today. For profound IgG deficiency (less than 200) higher doses of IVIG replacement initially are of consideration - will treat with 400 milligrams/kilogram today and plan repeat tomorrow based on profound decrease in IgG level (other consideration is 1 gram/kilogram dose although associated with more adverse reactions). Will premedicate with Benadryl and ibuprofen. Side effects of IVIG discussed with patient including hypersensitivity/anaphylactic reactions, hemolytic anemia, renal insufficiency, aseptic meningitis, and risk of thrombosis; educational material printed from up-to-date and provided to patient today. Check baseline hepatitis-B and C viral loads to ensure not present prior to IVIG administration (DNA testing rather than antibody testing given antibody deficiency). * Positive urine culture for ESBL producing E coli: Unclear if true UTI versus continued asymptomatic bacteriuria. Antibiotic therapy with ertapenem in short term which should address this problem but do not plan to continue long-term IV treatment for this. Continue contact precautions. 07/11/16 11:33 07/11/16 11:47 Subjective: Patient feels clinically improved. Less cough and no shortness of breath. No UTI symptoms. Objective: Vital Signs Temp Pulse Resp BP Pulse Ox 36.6 C 86 14 113/72 90 L 07/11/16 11:25 07/11/16 11:25 07/11/16 11:25 07/11/16 11:25 07/11/16 11:25 Microbiology 07/09/16 09:55 - Final Sputum, Expectorated Sputum Culture - Final Laboratory Results 07/11/16 05:30 07/11/16 05:30 07/10/16 07/11/16 07/12/16 05:59 05:59 05:59 Intake Total 2700 200 Output Total 300 Balance 2700 -100 Zosyn # 3 Blood cultures 07/08/2016 with growth of Serratia which is fluoroquinolone susceptible Blood cultures 07/10/2016 pending Urine culture with greater than 100,000 ESBL producing E coli - Physical Exam General Appearance: alert, no apparent distress EENT: pharynx normal, No scleral icterus Respiratory: crackles (Bilateral bases to a 1/3 up on the right) Cardiac/Chest: regular rate, rhythm Extremities: No inflammation Skin: No rash ICD10 Worksheet Patient Problems: Problems Problem Status Diagnosed ESBL (extended spectrum beta-lactamase) producing bacteria infection Acute 02/14 Hypoxia Acute Pneumonia Acute Sarcoidosis Acute MRSA - Methicillin resistant Staphylococcus aureus infection Active Pleural effusion Acute Respiratory failure Acute Sepsis Acute Thrombocytopenia Acute
--- NOTE | 2016-07-11 11:41 | HOSPPROG ---
Hospitalist Progress Note Assessment/Plan: Assessment: 30-year-old p/w acute hypoxic respiratory failure, Serratia bacteremia and multilobar pneumonia in setting of immunocompromise w/ sarcoid Plan: # Serratia bacteremia. POA, likely pulm source, fluoro and carbepenemase sensitive - repeat BCx pending, will be 14 days tx from 07/10 - appreciate ID consultation - if diarrhea worsens, send C diff PCR - adjusted Abx from Zosyn to Ertapenem 07/11, can consider Levofloxacin for remainder of tx if the ESBL in urine is considered colonizer and decision is made not to tx both serratia and ESBL # Suspected Serratia multilobar pneumonia. Evidenced by dense bilat multifocal airspace disease (personally interpreted CT) w/ resp failure, and underlying immunocompromised state - initially on Vanco/Zosyn, transitioned to Moxi, then Zosyn, now on Ertapenem - giving IVIG today given low IgG/IgA, hyper IgM - higher risk of anaphylaxis given low IgA, will premedicate w/ pred 10mg/ ibuprofen/benadryl, monitor closely - cont o2 # Acute hypoxic respiratory failure. Evidenced by SpO2 89% on room air (P:F 206 , which is moderate acute lung injury) w/ symptomatic labored breathing/ shortness of breath, reported tachypnea, 2/2 dense air space disease from pneumonia - requiring 2L NC, o2 monitoring - IS - will likely require o2 w/ activity at time of discharge # Sarcoidosis. Chronic, chronic immunocompromised state w/ nodularity noted on chest CT - current IG panel pending - cont on prednisone, readjusted to home dosing (4mg qod) - hep B panel sent # Thrombocytopenia. Chronic, appears to be at baseline based on previous admission levels. Will monitor for signs of bleeding. Diet. Regular PPx. Mod risk, SCDs, pharm contraindicated Code. Full Dispo. ADD 07/12, pending neg BCx drawn 07/10 and tolerance of IVIG w/o complications Subjective: Patient very distressed about prednisone, requires reassurance, requires encouragement Objective: Vital Signs Temp Pulse Resp BP Pulse Ox 36.6 C 86 14 113/72 90 L 07/11/16 11:25 07/11/16 11:25 07/11/16 11:25 07/11/16 11:25 07/11/16 11:25 Microbiology 07/09/16 09:55 - Final Sputum, Expectorated Sputum Culture - Final Laboratory Results 07/11/16 05:30 07/11/16 05:30 07/10/16 07/11/16 07/12/16 05:59 05:59 05:59 Intake Total 2700 200 Output Total 300 Balance 2700 -100 PT 16.9 SEC (12.0-15.0) H 07/09/16 04:19 INR 1.37 (0.83-1.16) H 07/09/16 04:19 - Time Spent With Patient Time Spent with Patient: greater than 35 minutes Time Spent with Patient: Greater than 35 minutes spent on this patients care, greater than 50% of time spent counseling, educating, and coordinating care regarding the above mentioned plan. - Pending Discharge Pending Discharge Within 24 Hours: Yes Pending Discharge Date: 07/12/16 Pending Discharge Time: 11:00 - Physical Exam Constitutional: not in pain, No chronically ill appearing, No uncomfortable Cardiovascular: regular rate and rhythym, no murmur, rub, or gallop Respiratory: rhonchi (Bilateral bases better inspiratory air movement from day prior), No expiratory wheeze, No bronchial breath sounds Gastrointestinal: normoactive bowel sounds, soft, non-tender abdomen, no palpable masses Neurologic: AAOx3 Psychiatric: interacting appropriately, not anxious, not encephalopathic, thought process linear ICD10 Worksheet Patient Problems: Problems Problem Status Diagnosed ESBL (extended spectrum beta-lactamase) producing bacteria infection Acute 02/14 Hypoxia Acute Pneumonia Acute Sarcoidosis Acute MRSA - Methicillin resistant Staphylococcus aureus infection Active Pleural effusion Acute Respiratory failure Acute Sepsis Acute Thrombocytopenia Acute
[2016-07-12 04:58] LABS: % IMMATURE GRANULYOCYTES 0.7 % (0.0-1.1); ABSOLUTE IMMATURE GRANULOCYTES 0.01 10^3/uL (0.00-0.10); ADD DIFF? NO; ADD MORPH? NO; ADD SCAN? NO; ATYPICAL LYMPHOCYTE FLAG 40 (0-99); FRAGMENT RBC FLAG 0 (0-99); HEMATOCRIT 32.1 % (38.0-47.0); HEMOGLOBIN 10.1 g/dL (12.6-16.3); LEFT SHIFT FLG 40 (0-99); LIPEMIA HEMOLYSIS FLAG 80 (0-99); MEAN CELL HEMOGLOBIN 26.1 pg (27.9-34.1); MEAN CELL HEMOGLOBIN CONCENTR. 31.5 g/dL (32.4-36.7); MEAN CELL VOLUME 82.9 fL (81.5-99.8); MEAN PLATELET VOLUME 10.2 fL (8.7-11.7); PLATELET CLUMPS FLAG 0 (0-99); PLATELET COUNT 69 10^3/uL (150-400); RED BLOOD CELL COUNT 3.87 10^6/uL (4.18-5.33); RED CELL DISTRIBUTION WIDTH 14.6 % (11.5-15.2)
[2016-07-12 05:23] LABS: ANION GAP 8 mEq/L (8-16); CALCIUM 8.6 mg/dL (8.5-10.4); CARBON DIOXIDE 22 mEq/l (22-31); CHLORIDE 110 mEq/L (97-110); CREATININE 0.8 mg/dL (0.6-1.0); GLOMERULAR FILTRATION RATE > 60; GLUCOSE 92 mg/dL (70-100); POTASSIUM 4.2 mEq/L (3.5-5.2); SODIUM 140 mEq/L (134-144)
[2016-07-12 07:21] LABS: IMMUNOGLOBULIN A <2 mg/dL (61 - 356); IMMUNOGLOBULIN G 13 mg/dL (767 - 1590); IMMUNOGLOBULIN M 1020 mg/dL (37 - 286)
[2016-07-12] MEDS ORDERED: IMMUNE GLOBULIN 20 GM/200 ML VIAL IV ONE (08:54)
[2016-07-12] MEDS ORDERED: IBUPROFEN 800 MG TAB PO ONE (08:56)
[2016-07-12] MEDS ORDERED: predniSONE 1 MG TAB PO SCH (09:00)
--- NOTE | 2016-07-12 09:41 | PCMIDPN ---
Assessment/Plan: Assessment/Plan: * Sepsis due to Serratia bacteremia: Suspect etiology is multilobar pneumonia due to Serratia. Continued clinical improvement. Plan 2 to 4 weeks of levofloxacin. Patient is aware of potential risk for tendinopathy. Okay for discharge from my perspective given clinical improvement. * Multilobar pneumonia: See above discussion. 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 Tolerated IVIG well yesterday. Will repeat dose today given profound decrease in IgG (jovany to loading dose). Plan repeat Ig levels in approximately 3 weeks to determine timing of next IVIG infusion. * Positive urine culture for ESBL producing E coli: Suspect prior Zosyn and ertapenem represent adequate therapy as unclear if truly contributing to presentation. * Pancytopenia: In part may be related to sepsis. Has had leukopenia and thrombocytopenia in past. Will repeat CBC on Sunday. ANC is greater than 500. If persists, may require bone marrow biopsy for further evaluation. 07/12/16 09:38 Subjective: Patient feels significantly improved. No noted side effects with IVIG yesterday. Objective: Vital Signs Temp Pulse Resp BP Pulse Ox 36.4 C 70 13 120/64 96 07/12/16 08:00 07/12/16 08:00 07/12/16 08:00 07/12/16 08:00 07/12/16 08:00 Microbiology 07/09/16 09:55 - Final Sputum, Expectorated Sputum Culture - Final Laboratory Results 07/12/16 04:50 07/12/16 04:50 07/11/16 07/12/16 07/13/16 05:59 05:59 05:59 Intake Total 200 500 Output Total 300 Balance -100 500 Ertapenem # 2 (antibiotics # 4) Blood cultures x2 no growth from 07/10/16 Laboratory Tests 07/09/16 04:19 IgG 13 L IgA <2 L IgM 1020 H - Physical Exam General Appearance: alert, no apparent distress EENT: pharynx normal, No scleral icterus Respiratory: other (Bilateral crackles in lower lung roper), No respiratory distress Cardiac/Chest: regular rate, rhythm Abdomen: non-tender, No distended ICD10 Worksheet Patient Problems: Problems Problem Status Diagnosed ESBL (extended spectrum beta-lactamase) producing bacteria infection Acute 07/08 Hypoxia Acute Pneumonia Acute Sarcoidosis Acute MRSA - Methicillin resistant Staphylococcus aureus infection Active Pleural effusion Acute Respiratory failure Acute Sepsis Acute Thrombocytopenia Acute
[2016-07-12] MEDS: OMEGA-3 FATTY ACIDS 1,000 MG CAP PO SCH (09:55)
[2016-07-12] MEDS: MULTIVITAMINS 1 EACH TAB PO SCH (09:55)
[2016-07-12] MEDS: ENOXAPARIN 40 MG/0.4 ML SYR SC SCH (09:57)
--- NOTE | 2016-07-12 10:02 | GDS ---
[f rep st] DISCHARGE SUMMARY FINAL DIAGNOSES: 1. Serratia bacteremia likely due to multilobar pneumonia. 2. Acute on chronic hypoxic respiratory failure. 3. 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 4. History of sarcoidosis. 5. Pancytopenia. HOSPITAL COURSE: A 30-year-old female who presented with shortness of breath. CT angiogram performe d showed no evidence of a PE, but did show dense multifocal bronchopneumonia as well as features of s tage II sarcoidosis. Blood cultures grew out Serratia marcescens. She was seen by Infectious Diseas angelika Serratia sensitive to fluoroquinolones, she will be placed on Levaquin on discharge. We will ten tatively set her for a 14-day course of Levaquin, exact duration to be determined based on her clinic al response as an outpatient per Infectious Disease. Urine culture grew out ESBL E coli. She does n ot have any real urinary symptoms, and received a few doses of Zosyn. We will not target this direct ly with ongoing antibiotic therapy. She is pancytopenic. She has certainly had blood cell count abnormalities in the past. We will plan to recheck her cell counts 2 days after discharge, possibly re-referral to see Dr. Dotson with Hem atology based on potential count response. She is seen and examined on the day of discharge, appears quite comfortable and anxious to be dischar [facility]. BILLING: I spent more than 30 minutes on the day of discharge coordinating care. /[id number]/MODL
[2016-07-12 10:08] VITALS: RESP 16
[2016-07-12 11:33] VITALS: BP 115/78; PULSE 80; TEMP 97.8; O2SAT 91
[2016-07-13 14:30] LABS: HCV QT RNA PCR < 1 IU/mL (<15)
== END 2016-07-12 19:05 | disposition home or self-care (01) | DRG 871 ==
LOC: OBSVTOIN 23:20 → F3N 07-09 02:05 → F3E 07-10 13:00
PROVIDERS: ADMIT Internal Medicine; ATTEND Student in an Organized Health Care Education/Training Program
PROC: 3E033WK Introduction of Immunostimulator into Peripheral Vein, Percutaneous (ICD-10-PCS; principal; 2016-07-11)
DX: A41.53 Sepsis due to Serratia (principal); J18.9 Pneumonia, unspecified organism; J96.21 Acute and chronic respiratory failure with hypoxia; D80.1 Nonfamilial hypogammaglobulinemia; D61.818 Other pancytopenia; R82.71 Bacteriuria; D86.9 Sarcoidosis, unspecified
CPT/HCPCS: 82784-90; 87449-90; 87517-90; J1200; J1335; J1459; J2543; J3370; Q9967

== ENCOUNTER → 2016-09-06 | Outpatient (CLI) | payer OTHER | LOC: FIMAGING 08:14 | PROVIDERS: ATTEND Family Medicine | DX: J18.9 Pneumonia, unspecified organism (principal); J90 Pleural effusion, not elsewhere classified; R60.9 Edema, unspecified; D86.9 Sarcoidosis, unspecified ==

== ENCOUNTER → 2016-09-29 | Outpatient (CLI) | payer OTHER | LOC: FIMAGING 07:50 | PROVIDERS: ATTEND Internal Medicine Pulmonary Disease | DX: R91.8 Other nonspecific abnormal finding of lung field (principal); Z87.01 Personal history of pneumonia (recurrent) ==

== ENCOUNTER 2016-10-02 16:09 | Inpatient (IN) | payer OTHER ==
--- NOTE | 2016-10-02 16:30 | EDPHY ---
H & P Stated Complaint: fever/high hr/hypoxia Time Seen by Provider: 10/02/16 16:22 HPI/ROS: CHIEF COMPLAINT: Fever, hypoxia. HISTORY OF PRESENT ILLNESS: The patient is a 30-year-old female with a history of IgG deficiency and sarcoidosis who presents with fever and chills. She had two chest x-rays taken last week at her primary care provider. The first showed a pneumonia and the second (5 days ago) showed no improvement. Today she developed chills and fever while at work. These symptoms feel similar to her previous sarcoid. She has been on nightly oxygen for the last 10 months. She is taking 20mg Prednisone per day. Her last IgG infusion was 3 weeks ago. She was in [place] 2 weeks ago. No chest pain, palpitations, vomiting, diarrhea, urinary complaints. REVIEW OF SYSTEMS: Aside from elements discussed in the HPI, a comprehensive 10-point review of systems was reviewed and is negative. PAST MEDICAL HISTORY: Sarcoidosis, pneumonia x4, empyema, ESBL. SOCIAL HISTORY: . VITAL SIGNS: Reviewed by me GENERAL: Well-developed, well-nourished. Pleasant. Visibly tachypneic. HEENT: Atraumatic. Eyes: No icterus, no injection. Mouth: moist mucous membranes. No erythema or lesions. Neck: supple with no adenopathy. LUNGS: Bilateral rales senior care up both sides posteriorly. Tachypneic. Drops oxygen saturation easily, even while talking. CARDIAC:Tachycardic, no rubs, murmurs or gallops. ABDOMEN: Soft, nontender, nondistended, bowel sounds normal. BACK: No CVA tenderness. EXTREMITIES: No trauma. No edema. Range of motion is normal throughout. NEURO: Alert and oriented, grossly nonfocal. Bilateral ankle swelling. SKIN: Warm and dry, no rash. PSYCHIATRIC: Normal mentation, no agitation. Portions of this note were transcribed by a auditor medical claims. I personally performed a history, physical exam, medical decision making, and confirmed accuracy of information the transcribed note. Source: Patient Exam Limitations: No limitations - Personal History LMP (Females 10-55): 15-21 Days Ago Current Tetanus/Diphtheria Vaccine: Yes Tetanus Vaccine Date: <10yrs - Medical/Surgical History Hx Asthma: No Hx Chronic Respiratory Disease: Yes Hx Diabetes: No Hx Cardiac Disease: No Hx Renal Disease: No Hx Cirrhosis: No Hx Alcoholism: No Hx HIV/AIDS: No Hx Splenectomy or Spleen Trauma: No Other PMH: PMH: Possibel IgG deficiency, sarcoidosis, mrsa- 2012, PNA x4 (septic ), empyema, ESBL. PSH: chest tube - Social History Smoking Status: Never smoked Constitutional: Initial Vital Signs Temperature (C) 38.4 C H 10/02/16 16:13 Heart Rate 156 H 10/02/16 16:13 Respiratory Rate 26 H 10/02/16 16:13 Blood Pressure 123/71 H 10/02/16 16:13 O2 Sat (%) 76 L 10/02/16 16:13 O2 Delivery Mode Oxymizer O2 (L/minute) 6 Allergies/Adverse Reactions: No Known Allergies Allergy (Verified 10/02/16 16:12) Home Medications: Medication Instructions Recorded Herbals/Supplements -Info Only 1 ea PO DAILY 10/02/16 [place]-3 Fatty Acids [Fish Oil 1000 1,000 mg PO DAILY 10/02/16 mg (*)] predniSONE [Deltasone] 20 mg PO DAILY 10/02/16 Medical Decision Making - Diagnostics EKG Interpretation: 12-LEAD EKG: Please see the full report in Trace Master. My interpretation: Sinus tachycardia rate 123. Imaging Results: CXR: Impression: Bilateral lower lobe interstitial lung disease, with interval progressive consolidation of the posterior aspect of the right lower lobe suspicious for superimposed pneumonia. Imaging: I viewed and interpreted images myself ED Course/Re-evaluation: This 30-year-old female has a history of sarcoidosis, recurrent pneumonia, and IgG deficiency. 5 days ago after developing shortness of breath and hypoxia she had a chest x-ray taken that showed bilateral infiltrates. Today she presents with fever and hypoxia. Temperature is 38.4 and oxygen saturation is 76% on arrival. She is tachycardic at 145. On exam I hear bilateral rales senior care up. Chest x-ray ordered. She meets SERS criteria. An IV was established and labs ordered. 1gm PO Tylenol administered for fever alone with 1L IV saline for hydration and 125mg IV Solu-Medrol. Lactic acid elevated at 2.2. WBC 2.80. Severe Sepsis/Septic Shock Care Note The patient presents to the ED with probable pneumonia identified as an acute infection. The patient did have evidence of end-organ dysfunction and met criteria for severe sepsis. This condition was identified by myself at 5:00 p.m.. The patients vital signs are 135HR, 91 on O2, 104/58, 28, 38.3 The patient has a venous lactic acid performed within 3 hours of the identification of severe sepsis which was found to be 2.2. The patient has blood cultures drawn and received levofloxacin IV, per the severe sepsis treatment protocol. The initial lactate was elevated and rechecked within 6 hours of the identification time of severe sepsis and found to be: 1.4. I independently reviewed the patient's chest x-ray on the PACS system. Please see Imaging Results section for official radiologist report. 1814: Consulted with Dr. Weaver, hospitalist. He accepts admission. Differential Diagnosis: Diff dx considered included pneumonia, empyema, sarcoid, ARDS, hypoxia, sepsis, immunosuppression. Consult/Admit Bed Type: Lidya Garcia - Data Points Laboratory Results: Laboratory Results 10/02/16 16:28 10/02/16 16:28 Medications Given: Discontinued Medications Acetaminophen (Tylenol) 1,000 mg PO EDNOW ONE Stop: 10/02/16 16:51 Last Admin: 10/02/16 16:50 Dose: 1,000 mg Diphenhydramine HCl (Benadryl Injection) 50 mg IVP ONCE ONE Stop: 10/02/16 20:01 Last Admin: 10/02/16 22:02 Dose: 50 mg Sodium Chloride (Ns) 1,000 mls @ 0 mls/hr IV ONCE ONE PRN Reason: Wide Open Stop: 10/02/16 16:46 Last Admin: 10/02/16 16:49 Dose: 1,000 mls Levofloxacin/Dextrose (Levaquin 750 Mg (Premix)) 150 mls @ 100 mls/hr IV EDNOW ONE PRN Reason: Protocol Stop: 10/02/16 18:49 Last Admin: 10/02/16 17:41 Dose: 150 mls Sodium Chloride (Ns) 2,500 mls @ 5,000 mls/hr 30 ml/kg infuse over 30 min ( 2500 ml) IV EDNOW ONE Stop: 10/02/16 18:24 Last Admin: 10/02/16 18:37 Dose: 1,500 mls Ibuprofen (Motrin) 600 mg PO EDNOW ONE Stop: 10/02/16 16:51 Last Admin: 10/02/16 16:50 Dose: 600 mg Ibuprofen (Motrin) 800 mg PO ONCE ONE Stop: 10/02/16 20:01 Last Admin: 10/02/16 22:02 Dose: 800 mg Immune Globulin (Privigen 20 Gm) 20 gm IV ONCE ONE Stop: 10/02/16 20:31 Last Admin: 10/02/16 22:59 Dose: 20 gm Methylprednisolone Sodium Succinate (Solu-Medrol) 125 mg IVP EDNOW ONE Stop: 10/02/16 16:46 Last Admin: 10/02/16 17:13 Dose: 125 mg Departure - Departure Disposition: [facility] Inpatient Acute Clinical Impression: ESBL (extended spectrum beta-lactamase) producing bacteria infection, Hypoxia, Sarcoidosis Pneumonia Qualifiers: Pneumonia type: due to unspecified organism Laterality: bilateral Lung location : lower lobe of lung Qualified Code(s): J18.9 - Pneumonia, unspecified organism Sepsis Qualifiers: Sepsis type: sepsis due to unspecified organism Qualified Code(s): A41.9 - Sepsis, unspecified organism Condition: Fair Report Scribed for: Dulce Maria Navarrete Report Scribed by: Shivam Casas Date of Report: 10/02/16 Time of Report: 16:38
[2016-10-02] MEDS ORDERED: IBUPROFEN 600 MG TAB PO ONE ×2 (16:39→16:50)
[2016-10-02] MEDS ORDERED: ACETAMINOPHEN 500 MG TAB ONE (16:40)
[2016-10-02] MEDS ORDERED: methylPREDNISolone SOD SUCC 125 MG/2 ML VIAL IVP ONE (16:45)
[2016-10-02] MEDS ORDERED: NS 1,000 ML IV ONE (16:45)
[2016-10-02] MEDS ORDERED: ACETAMINOPHEN 500 MG TAB PO ONE (16:50)
[2016-10-02 17:10] LABS: ANION GAP 10 mEq/L (8-16); BILIRUBIN,TOTAL 1.1 mg/dL (0.1-1.4); CALCIUM 9.2 mg/dL (8.5-10.4); CARBON DIOXIDE 21 mEq/l (22-31); CHLORIDE 105 mEq/L (97-110); GLOMERULAR FILTRATION RATE > 60; GLUCOSE 88 mg/dL (70-100); POTASSIUM 4.6 mEq/L (3.5-5.2); SODIUM 136 mEq/L (134-144)
[2016-10-02 17:11] LABS: % IMMATURE GRANULYOCYTES 0.4 % (0.0-1.1); ABSOLUTE IMMATURE GRANULOCYTES 0.01 10^3/uL (0.00-0.10); ADD DIFF? NO; ADD MORPH? NO; ADD SCAN? YES; ATYPICAL LYMPHOCYTE FLAG 20 (0-99); FRAGMENT RBC FLAG 20 (0-99); HEMATOCRIT 37.1 % (38.0-47.0); HEMOGLOBIN 11.4 g/dL (12.6-16.3); LIPEMIA HEMOLYSIS FLAG 80 (0-99); MEAN CELL HEMOGLOBIN 23.4 pg (27.9-34.1); MEAN CELL HEMOGLOBIN CONCENTR. 30.7 g/dL (32.4-36.7); PLATELET CLUMPS FLAG 30 (0-99); PLATELET COUNT 93 10^3/uL (150-400); RED BLOOD CELL COUNT 4.88 10^6/uL (4.18-5.33); RED CELL DISTRIBUTION WIDTH 18.9 % (11.5-15.2)
[2016-10-02 17:14] LABS: LEFT SHIFT FLG 190 (0-99)
[2016-10-02 17:19] LABS: INR 1.04 (0.83-1.16); PROTIME(PATIENT) 13.5 SEC (12.0-15.0)
[2016-10-02 17:20] LABS: APTT 29.9 SEC (23.0-38.0)
--- NOTE | 2016-10-02 17:22 | CPEKG ---
Heart Rate: 123 RR Interval: 488 P-R Interval: 136 QRSD Interval: 90 QT Interval: 288 QTC Interval: 412 P Sturdivant: 47 QRS Sturdivant: 56 T Wave Sturdivant: -77 EKG Severity - OTHERWISE NORMAL ECG - EKG Impression: SINUS TACHYCARDIA Electronically Signed By: Polina Dominguez 02-Oct-2016 21:44:10
[2016-10-02 17:49] LABS: LACGHOST ORDER
[2016-10-02 17:51] LABS: SCAN NEGATIVE
[2016-10-02] MEDS ORDERED: NS 2,500 ML IV ONE (17:55)
[2016-10-02] MEDS ORDERED: ACETAMINOPHEN 325 MG TAB PO PRN (18:57)
[2016-10-02] MEDS ORDERED: IBUPROFEN 200 MG TAB PO PRN (18:57)
[2016-10-02] MEDS ORDERED: ONDANSETRON DISINTEGRATING 4 MG TAB PO PRN (18:57)
[2016-10-02] MEDS ORDERED: ONDANSETRON 4 MG/2 ML VIAL IVP PRN (18:57)
[2016-10-02] MEDS ORDERED: NS 1,000 ML IV SCH (19:00)
--- NOTE | 2016-10-02 19:08 | PDGENHP ---
History and Physical - Chief Complaint Acute fever - History of Present Illness Primary production checker: Dr. López Primary infectious Disease: Dr. Grullon HPI: 30-year-old female presenting with acute fever characterized as temperature of 101.7 degrees F with associated rigors and onset of symptoms around 11:30 a.m. on the day of presentation. The symptoms occurred in the context of approximately 1/2 weeks of shortness of breath, exacerbated by exertion, somewhat alleviated by up titration of steroids. The patient began taking prednisone 10 mg daily approximately 1 week ago and then increased this to 20 mg daily approximately 4-5 days ago at the direction of Dr. López. She also began using supplemental oxygen during the daytime and this seemed to alleviate her shortness of breath somewhat as well. On the day of this presentation, she experienced rigors and significantly worsening shortness of breath very suddenly. She denies overt chest pain but does endorse bilateral lower extremity edema which has been present for approximately 2 weeks since a trip to [place]. Her last dosage of IVIG was 3 weeks ago. She has experienced reactions to IVIG in the past. History Information - Allergies/Home Medication List Allergies/Adverse Reactions: No Known Allergies Allergy (Verified 10/02/16 16:12) Home Medications: Herbals/Supplements -Info Only 1 ea PO DAILY 07/09/16 [Last Taken 07/08/16] Multivitamins [Multivitamin (*)] 1 each PO DAILY 07/09/16 [Last Taken 07/08/16] [place]-3 Fatty Acids [Fish Oil 1000 mg (*)] 1,000 mg PO DAILY 07/09/16 [Last Taken 07/08/16] predniSONE 4 mg PO Q2D 07/09/16 [Last Taken 07/07/16] I have personally reviewed and updated: family history, medical history, social history, surgical history - Past Medical History Additional medical history: sarcoidosis, diagnosed in childhood, pulmonary an extrapulmonary manifestations. immunocompromised state, exact diagnosis pending. recurrent pneumonias requiring hospitalization in last 3 months. 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 Lives with her and is independent in ADLs. Review of Systems ROS: 10pt was reviewed & negative except for what was stated in HPI & below Constitutional: Reports: chills (Rigors), fever Respiratory: Reports: cough, shortness of breath Physical Exam Temp Pulse Resp BP Pulse Ox 37.4 C 125 H 18 106/48 L 93 10/02/16 17:42 10/02/16 17:14 10/02/16 17:14 10/02/16 17:14 10/02/16 17:14 Constitutional: no apparent distress, appears nourished, not in pain Eyes: PERRL, anicteric sclera, EOMI Ears, Nose, Mouth, Throat: moist mucous membranes, hearing normal, ears appear normal, no oral mucosal ulcers Cardiovascular: tachycardia, edema (Trace bilateral lower extremity), No systolic murmur, No irregularly irregular Respiratory: reduced air movement (Right lower posterior segment), rhonchi (On inspiration right lower posterior segment), No expiratory wheeze, No bronchial breath sounds Gastrointestinal: normoactive bowel sounds, soft, non-tender abdomen, no palpable masses Skin: warm, normal color, no rashes or abrasions, no fluctuance, no induration, No mottled Neurologic: AAOx3, No facial droop Psychiatric: interacting appropriately, not anxious, not encephalopathic, thought process linear Lab Data & Imaging Review 10/02/16 16:28 10/02/16 16:28 WBC 2.80 10^3/uL (3.80-9.50) L 10/02/16 16:28 RBC 4.88 10^6/uL (4.18-5.33) 10/02/16 16:28 Hgb 11.4 g/dL (12.6-16.3) L 10/02/16 16:28 Hct 37.1 % (38.0-47.0) L 10/02/16 16:28 MCV 76.0 fL (81.5-99.8) L 10/02/16 16:28 MCH 23.4 pg (27.9-34.1) L 10/02/16 16:28 MCHC 30.7 g/dL (32.4-36.7) L 10/02/16 16:28 RDW 18.9 % (11.5-15.2) H 10/02/16 16:28 Plt Count 93 10^3/uL (150-400) L 10/02/16 16:28 MPV Not Reported 10/02/16 16:28 Neut % (Auto) 65.3 % (39.3-74.2) 10/02/16 16:28 Lymph % (Auto) 18.9 % (15.0-45.0) 10/02/16 16:28 [place] % (Auto) 15.0 % (4.5-13.0) H 10/02/16 16:28 Eos % (Auto) 0.0 % (0.6-7.6) L 10/02/16 16:28 Baso % (Auto) 0.4 % (0.3-1.7) 10/02/16 16:28 Nucleat RBC Rel Count 0.0 % (0.0-0.2) 10/02/16 16:28 Absolute Neuts (auto) 1.83 10^3/uL (1.70-6.50) 10/02/16 16:28 Absolute Lymphs (auto) 0.53 10^3/uL (1.00-3.00) L 10/02/16 16:28 Absolute Monos (auto) 0.42 10^3/uL (0.30-0.80) 10/02/16 16:28 Absolute Eos (auto) 0.00 10^3/uL (0.03-0.40) L 10/02/16 16:28 Absolute Basos (auto) 0.01 10^3/uL (0.02-0.10) L 10/02/16 16:28 Absolute Nucleated RBC 0.00 10^3/uL (0-0.01) 10/02/16 16:28 Immature Gran % 0.4 % (0.0-1.1) 10/02/16 16: Immature Gran # 0.01 10^3/uL (0.00-0.10) 10/02/16 16:28 PT 13.5 SEC (12.0-15.0) 10/02/16 16:28 INR 1.04 (0.83-1.16) 10/02/16 16:28 APTT 29.9 SEC (23.0-38.0) 10/02/16 16:28 VBG Lactic Acid 1.4 mmol/L (0.7-2.1) 10/02/16 18:30 Sodium 136 mEq/L (134-144) 10/02/16 16:28 Potassium 4.6 mEq/L (3.5-5.2) 10/02/16 16:28 Chloride 105 mEq/L (97-110) 10/02/16 16:28 Carbon Dioxide 21 mEq/l (22-31) L 10/02/16 16:28 Anion Gap 10 mEq/L (8-16) 10/02/16 16:28 BUN 25 mg/dL (7-23) H 10/02/16 16:28 Creatinine 1.0 mg/dL (0.6-1.0) 10/02/16 16:28 Estimated GFR > 60 10/02/16 16:28 Glucose 88 mg/dL (70-100) 10/02/16 16:28 Calcium 9.2 mg/dL (8.5-10.4) 10/02/16 16:28 Total Bilirubin 1.1 mg/dL (0.1-1.4) 10/02/16 16:28 Visualized and Interpreted Chest x-ray results: Yes Chest X-Ray results: other (Right lower lobe infiltrate, dense interstitial infiltrates) Visualized and Interpreted EKG results: Yes EKG Interpretation: Positive for: other (Sinus tachycardia, T-wave inversion in lead V2 through V4) Assessment & Plan Assessment: 30-year-old female presents with severe sepsis in the setting of right lower lobe pneumonia, pulmonary sarcoidosis Plan: 1. Severe sepsis. Acute, new problem this provider, further workup indicated. Evidenced by tachycardia, fever, tachypnea, clear source of infection, evidence of end-organ failure notably lactic acidosis and acute hypoxic respiratory failure, resulting in autonomic dysregulation in the setting of infection, meeting all ICD S-2/sepsis-2 criteria. -empirically given IV fluids, repeat lactic drawn -empiric IV antibiotics -send sputum cultures, send blood cultures, send rapid respiratory viral panel -get CT angiogram of the chest to rule out pulmonary embolism, evaluate for worsening sarcoid, confirm pneumonia -discussed with Dr. Navarrete in the emergency department, we both agree the patient is appropriate for step-down unit level care 2. Right lobe pneumonia. Present on chest imaging, with sepsis physiology as outlined above, pulmonary symptoms -that being said, the patient feels like the character of her symptoms is more consistent with her sarcoidosis which will be further discussed below -patient has received empiric IV levofloxacin which covers her previous known organisms of Serratia as well as strep pneumo (outside records reviewed including 07/12/[address] Bo Grullon, indicating that the patient had Serratia bacteremia and pneumonia, for quinolone sensitive, received 2-4 weeks at that time, also treated with IVIG and premedication) -the patient would like to avoid levofloxacin moving forward, and I have counseled her that the infectious disease service has been consulted and will further discuss antibiotic selection with her tomorrow, she will be covered until approximately 6:00 p.m. on 10/03 with levofloxacin 3. Sarcoidosis. Chronic, Pulmonary and extrapulmonary, with hypo gamma globulinemia next chronic immunosuppression -most recent dosage of IVIG was 3 weeks ago at which time her IgG level was 244 , IgA was less than 2, IgM was 1900 -send immunoglobulin panel at this time -treat with ibuprofen 800 mg, Benadryl 50 mg IV -give 20 g of weight based dosing IVIG, monitor for hypersensitivity reaction given her IgA deficiency -the patient received Solu-Medrol in the emergency department, will continue with 20 mg daily tomorrow morning -appreciate pulmonary consultation in the ICU 4. Acute hypoxic respiratory failure. Evidenced by SpO2 of 76% on room air on presentation with objective tachypnea, symptomatic shortness of breath and labored breathing, most likely secondary to a combination of severe sepsis, right lower lobe pneumonia, underlying sarcoidosis -patient received OxyMask in the emergency department for stabilization, currently receiving 4 L nasal cannula with central pulse ox monitoring in the step-down unit 5. Metabolic acidosis. Acute, secondary to lactic acid, receiving IV fluids, repeat lactic acid level 6. Pancytopenia. Secondary to sarcoidosis, chronic, continue to monitor Diet. Regular Prophylaxis. High risk patient, Lovenox 40 Code. Full Disposition. Anticipated discharge uncertain this time, anticipated length stay greater than 48 hours warranting inpatient admission status for acute severe sepsis and high risk comorbid right lower lobe pneumonia, sarcoidosis, acute hypoxic respiratory failure. 45 minutes of bedside comma critical care time spent with this patient and her mother, as well as coordinating her care with her emergency department providers. The patient remains critically ill and will be transferred to the step-down unit at this time.
[2016-10-02] MEDS ORDERED: IOPAMIDOL (ISOVUE 370) 100 ML BTL IV ONE ×2 (19:09→19:15)
[2016-10-02 19:56] LABS: COLOR YELLOW; LEUKOCYTE ESTERASE,URINE NEGATIVE (NEGATIVE); NITRITE,URINE NEGATIVE (NEGATIVE)
[2016-10-02] MEDS ORDERED: IBUPROFEN 800 MG TAB PO ONE (20:00)
[2016-10-02] MEDS ORDERED: IMMUNE GLOBULIN 20 GM/200 ML VIAL IV ONE (20:30)
[2016-10-03 05:33] LABS: % IMMATURE GRANULYOCYTES 0.3 % (0.0-1.1); ABSOLUTE IMMATURE GRANULOCYTES 0.01 10^3/uL (0.00-0.10); ADD DIFF? NO; ADD MORPH? NO; ADD SCAN? YES; ATYPICAL LYMPHOCYTE FLAG 0 (0-99); FRAGMENT RBC FLAG 20 (0-99); HEMATOCRIT 27.9 % (38.0-47.0); HEMOGLOBIN 8.2 g/dL (12.6-16.3); LIPEMIA HEMOLYSIS FLAG 70 (0-99); MEAN CELL HEMOGLOBIN 23.4 pg (27.9-34.1); MEAN CELL HEMOGLOBIN CONCENTR. 29.4 g/dL (32.4-36.7); MEAN CELL VOLUME 79.7 fL (81.5-99.8); PLATELET CLUMPS FLAG 20 (0-99); PLATELET COUNT 81 10^3/uL (150-400); RED CELL DISTRIBUTION WIDTH 18.8 % (11.5-15.2)
[2016-10-03 05:39] LABS: LEFT SHIFT FLG 300 (0-99)
[2016-10-03 05:55] LABS: ALANINE AMINOTRANSFERASE 38 IU/L (9-52); ALBUMIN 2.4 g/dL (3.5-5.0); ALKALINE PHOSPHATASE 105 IU/L (38-126); ANION GAP 8 mEq/L (8-16); ASPARTATE AMINOTRANSFERASE 25 IU/L (14-46); BILIRUBIN,TOTAL 0.8 mg/dL (0.1-1.4); CALCIUM 8.5 mg/dL (8.5-10.4); CARBON DIOXIDE 22 mEq/l (22-31); CHLORIDE 111 mEq/L (97-110); GLOMERULAR FILTRATION RATE > 60; GLUCOSE 98 mg/dL (70-100); POTASSIUM 4.2 mEq/L (3.5-5.2); SODIUM 141 mEq/L (134-144); TOTAL PROTEIN 5.4 g/dL (6.3-8.2)
[2016-10-03 06:06] LABS: SCAN POSITIVE
[2016-10-03 06:10] LABS: HYPOCHROMIA 1+; PLATELET ESTIMATE DECREASED (ADEQ)
[2016-10-03] MEDS: OMEGA-3 FATTY ACIDS 1,000 MG CAP PO SCH (08:20)
[2016-10-03] MEDS: ENOXAPARIN 40 MG/0.4 ML SYR SC SCH (08:20)
[2016-10-03] MEDS: predniSONE 20 MG TAB PO SCH (08:20)
[2016-10-03] MEDS ORDERED: Herbals/Supplements -Info Only PO SCH (09:00)
--- NOTE | 2016-10-03 10:29 | HOSPPROG ---
Hospitalist Progress Note Assessment/Plan: 30 yo F w sarcoid, recurrent pneumonia here w fever, RLL infiltrate, sepsis sepsis: source is lungs septic physiology has resolved pneumonia: d/w ID- deciding if to treat as HCAP vs CAP 02 sats improving minimal work of breathing sarcoid: had been on prolonged steroid taper, but started on po pred earlier in the week continue pred at 20 hemodynamically stable- no need for stress dose steroids proph: lmwh dispo: to floor Subjective: case d/w dr culp. cxr w b/l airspace disease and new RLL infiltrate (interp by me) Objective: Vital Signs Temp Pulse Resp BP Pulse Ox 36.5 C 66 13 92/54 L 95 10/03/16 08:00 10/03/16 08:00 10/03/16 08:00 10/03/16 08:00 10/03/16 08:00 Laboratory Results 10/03/16 05:20 10/03/16 05:20 10/02/16 10/03/16 10/04/16 05:59 05:59 05:59 Intake Total 2959 Output Total 1350 Balance 1609 PT 13.5 SEC (12.0-15.0) 10/02/16 16:28 INR 1.04 (0.83-1.16) 10/02/16 16:28 - Physical Exam Constitutional: no apparent distress, appears nourished Eyes: PERRL, anicteric sclera Ears, Nose, Mouth, Throat: moist mucous membranes, hearing normal Cardiovascular: regular rate and rhythym, no murmur, rub, or gallop Respiratory: other (bibasilar crackles, R>L) Gastrointestinal: normoactive bowel sounds, soft, non-tender abdomen Genitourinary: No amador in urethra Skin: warm, normal color Musculoskeletal: full muscle strength, no muscle tenderness Neurologic: AAOx3, sensation intact bilaterally Psychiatric: interacting appropriately, not anxious Lymph, Heme, Immunologic: no cervical LAD ICD10 Worksheet Patient Problems: Problems Problem Status Onset MRSA - Methicillin resistant Staphylococcus aureus infection Active ESBL (extended spectrum beta-lactamase) producing bacteria infection Acute Hypoxia Acute Pleural effusion Acute Pneumonia Acute Respiratory failure Acute Sarcoidosis Acute Sepsis Acute Thrombocytopenia Acute
[2016-10-03] MEDS: AZITHROMYCIN 250 MG TAB PO SCH (11:22)
--- NOTE | 2016-10-03 12:31 | GCON ---
[f rep st] CONSULTATION INFECTIOUS DISEASE CONSULTATION DATE OF CONSULTATION: 10/03/2016 REFERRING PHYSICIAN: Pito Weaver MD REASON FOR CONSULTATION: Shortness of breath, new pneumonia, for further evaluation and opinion. CHIEF COMPLAINT: Shortness of breath. HISTORY OF PRESENT ILLNESS: This is a 30-year-old female with a past medical history significant for sarcoidosis. She was diagnosed at the age of 14 and has intermittently been on steroids since that time. Most recently, she had come off a very low dose of steroids of 1 mg about 1 month ago and was doing well. She follows with Dr. Raimundo López, who has been managing her steroid regimen and basically has been weaning down on steroids very slowly but has only been on very low doses recently. She was doing well up until recently when she started to have shortness of breath last week, around the or 27 of September. She did not have any fevers at that time, was not having any shaking chills at that time. Intermittent dry cough but no increase in sputum production. She felt like maybe she was having a flare-up of her sarcoid. Her oxygen saturations had only dipped down to its lowest, around 85%. Normally, she does not wear oxygen during the daytime but always wears oxygen at night at around 2-3 L. Over the past week, she has required some oxygen in the morning, about 2-3 L, and then she was doing better in the afternoon. She self-initiated steroid therapy at 10 mg around September 26 and took that for 2 days and scheduled a followup with Dr. López for , the . At that time, he had done a chest x-ray, which had shown persistent consolidation-like changes in the lower lobes. He bumped up her steroid to 20 mg, and she has been on that for the past 5 days. Over the weekend, she started to feel much better, but then yesterday she was starting to feel a little bit more short of breath. She left the home without her oxygen canister and went to work. She was somewhat locked out of her house and therefore could not make her way back. Progressively during the morning, she started to feel more short of breath. By late morning, she started to have some chills to the point where she was having some teeth chattering chills. She states that she normally does get these types of symptoms when she gets a flare-up of her sarcoid. She was not complaining of any fevers. She was monitoring her oxygen, and she states that her O2 saturations had dripped down into the 60s. Due to the above symptoms, she finally came into the ER for further evaluation. Her O2 saturations in the ER were 76% with an elevated respiratory rate of 21 , and she was noted to have a temperature of 38.4 at that time. Blood cultures x2 sets were drawn and they are currently pending. Her white blood cell count was noted to be at 2.8, and she does have a history of some leukopenia in general. She had a CT chest done which was negative for a pulmonary embolism but did show persistent interstitial changes in the lower lobes, but a new area of consolidation in the right lower lobe with air bronchogram. She is not bringing up any phlegm. She was given a dose of Solu-Medrol 125 mg x1 yesterday and a dose of Levaquin yesterday as well. Today, she is maintained on 20 mg of prednisone and is currently not on any antibiotics at present. She states she feels much better with respect to her breathing. She is at 2.5 to 3 L O2 via nasal cannula. Intermittent dry cough and still not bringing up any phlegm. She no longer has any shaking chills. She states that she recently traveled to [place] between September 18 to September 24. She in [employer] [place]. She only was at the pool each day. She had very minimal or brief walks out to the beach but did not do any ocean water activities or certainly any fresh water activities. She had no exposure or close contact with any animals and certainly farm animals. She did not do any activities, again, where there was soil being kicked up into the air ; and again, she was not around any areas where there were pigeon droppings. She does not recall having any close sick contacts on her travel there, while there, or on her way back. She has no known close contact with children. REVIEW OF SYSTEMS: GENERAL: No fevers but did have shaking chills yesterday. Had no headaches. EYES: No change in vision. ENT: No sore throat, difficulty swallowing, ear pain, or ear drainage. CARDIOVASCULAR: She denies any chest pain or rapid heartbeat. RESPIRATORY: As above. ABDOMEN: No nausea , vomiting, abdominal pain, or diarrhea. BACK: No flank pain or back pain. : No dysuria or hematuria. MUSCULOSKELETAL: No joint pains or muscle aches. SKIN: No rashes or open wounds. The rest of a 10-point review of systems was essentially negative except as above. 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 PAST SURGICAL HISTORY: Significant for VATS. SOCIAL HISTORY: Nonsmoker. Occasionally drinks alcohol. Lives with her . 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 No pets. Recent travel as outlined above. No recent sick contacts. No recent exposure to farm animals or close contact with animals. No contact with mice excreta No fresh water activity recently. FAMILY HISTORY: Reviewed and noncontributory. MEDICATIONS: As per MAR. ALLERGIES: No known drug allergies. PHYSICAL EXAMINATION: VITAL SIGNS: Temp current 36.5, respiratory. Rate is 13. Pulse is 66. Blood pressure 92/54. Saturations are 95% on 3 L O2 via nasal cannula. GENERAL: She is sitting up in the bed in no acute respiratory distress. Awake, alert, and oriented x3. HEENT: Eyes: No conjunctival injection or petechiae noted. Oropharynx is clear. CARDIOVASCULAR: S1, S2. Regular rate and rhythm. No murmurs appreciated. RESPIRATORY: Coarse breath sounds, particularly in the mid and lower lungs, slightly more prominent on the right. ABDOMEN: Positive bowel sounds in all 4 quadrants. Soft, nontender, nondistended. MUSCULOSKELETAL: No joint effusions or pain on palpation of the joints or muscles. No lower extremity edema. SKIN: No obvious rashes. LABORATORY DATA: White blood cell count 3.0, hemoglobin 8.2, platelets are 81. Neutrophil count is 25% and bands are 40%. Initial venous lactic acid 2.2, down to 1.8 today. Chemistry: Sodium 141, potassium 4.2, chloride 111, bicarb 22, BUN 22, creatinine 1.0. LFTs are within the normal range. Urinalysis is unremarkable. Immunoglobulins are pending. Respiratory viral PCR pending. Blood cultures x2 sets are pending. Imaging results have all been reviewed by me and are stated above. I updated patient on results of her CT chest. ASSESSMENT: 1. Fever, hypoxia, new pneumonia in the right lower lobe in immunocompromised patient 2. Sarcoidosis. 3. History of hypogammaglobulinemia. PLAN: We will start workup with influenza PCR, sputum culture if she is able to cough up phlegm. We will check for urine Legionella, urine Streptococcus pneumoniae, and mycoplasma serologies. Respiratory viral PCR is pending. Blood cultures are pending. We will also see if she again can cough up some phlegm for PCP evaluation as well, especially given her chronic steroid use, although she has not been on high-dose steroids recently. Continue with contact isolation given her recent history of ESBL. We will maintain her on broad antimicrobial coverage while workup is in progress, covering for possible nosocomial pathogens given her recent hospitalization a couple of months ago, as well as community-acquired pneumonia as well as atypical pneumonia. Did travel to [place], which raises the possibility of risk for coccidioidomycosis or histoplasmosis. I feel that this is probably less likely in general. We will do evaluation given patient is immunocompromised. Care coordinated and discussed with automobile technician team and the hospitalist team. Thank you very much for the opportunity to care for your patient in consultation. /[id number]/MODL MTDD
[2016-10-03] MEDS: CEFEPIME HCL 2 GM in D5W 100 ML IV SCH ×2 (14:31→21:34)
[2016-10-04] MEDS: CEFEPIME HCL 2 GM in D5W 100 ML IV SCH ×3 (06:14→21:30)
[2016-10-04 06:32] LABS: % IMMATURE GRANULYOCYTES 0.5 % (0.0-1.1); ABSOLUTE IMMATURE GRANULOCYTES 0.01 10^3/uL (0.00-0.10); ADD DIFF? NO; ADD MORPH? NO; ADD SCAN? YES; ATYPICAL LYMPHOCYTE FLAG 0 (0-99); FRAGMENT RBC FLAG 20 (0-99); HEMATOCRIT 28.9 % (38.0-47.0); HEMOGLOBIN 8.6 g/dL (12.6-16.3); LEFT SHIFT FLG 60 (0-99); LIPEMIA HEMOLYSIS FLAG 70 (0-99); MEAN CELL HEMOGLOBIN CONCENTR. 29.8 g/dL (32.4-36.7); MEAN CELL VOLUME 80.5 fL (81.5-99.8); MEAN PLATELET VOLUME 12.2 fL (8.7-11.7); PLATELET CLUMPS FLAG 0 (0-99); PLATELET COUNT 79 10^3/uL (150-400); RED BLOOD CELL COUNT 3.59 10^6/uL (4.18-5.33); RED CELL DISTRIBUTION WIDTH 18.8 % (11.5-15.2)
[2016-10-04 06:58] LABS: SCAN NEGATIVE
[2016-10-04] MEDS: predniSONE 20 MG TAB PO SCH (09:05)
[2016-10-04] MEDS: AZITHROMYCIN 250 MG TAB PO SCH (09:05)
[2016-10-04] MEDS: OMEGA-3 FATTY ACIDS 1,000 MG CAP PO SCH (09:06)
[2016-10-04] MEDS: ENOXAPARIN 40 MG/0.4 ML SYR SC SCH (09:47)
--- NOTE | 2016-10-04 09:51 | HOSPPROG ---
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 At least 4 episodes of PNA in past year. sepsis: septic physiology has resolved pneumonia: CXR personally reviewed and interpreted, RLL consolidation. BCx's ngtd, sputum cx pending, continue Cefepime, Azithro, ID following. Discussed case with Dr. Grullon. sarcoid: manifesting with splenomegaly. had been on prolonged steroid taper, currently on po prednisone, will continue pancytopenia: likely secondary to splenomegaly, monitor IgG deficiency: level sent prior to recent IVIG infusion. proph: lmwh dispo: ICU Subjective: Pt doing quite well, though requiring several liters of O2. No fevers/chills. Cough improved. Objective: Vital Signs Temp Pulse Resp BP Pulse Ox 36.6 C 77 20 108/69 92 10/04/16 06:06 10/04/16 07:56 10/04/16 07:56 10/04/16 07:56 10/04/16 07:56 Microbiology 10/03/16 17:15 - Final Sputum, Expectorated Laboratory Results 10/04/16 06:15 10/03/16 05:20 10/03/16 10/04/16 10/05/16 05:59 05:59 05:59 Intake Total 2959 4042 Output Total 1350 1500 Balance 1609 2542 PT 13.5 SEC (12.0-15.0) 10/02/16 16:28 INR 1.04 (0.83-1.16) 10/02/16 16:28 - Physical Exam Constitutional: no apparent distress Eyes: PERRL Ears, Nose, Mouth, Throat: moist mucous membranes Cardiovascular: regular rate and rhythym Respiratory: no respiratory distress, inspiratory crackles Gastrointestinal: normoactive bowel sounds, soft, non-tender abdomen Skin: warm Musculoskeletal: full muscle strength Neurologic: AAOx3 Psychiatric: interacting appropriately ICD10 Worksheet Patient Problems: Problems Problem Status Onset ESBL (extended spectrum beta-lactamase) producing bacteria infection Acute Hypoxia Acute Pneumonia Acute Sarcoidosis Acute Sepsis Acute MRSA - Methicillin resistant Staphylococcus aureus infection Active Pleural effusion Acute Respiratory failure Acute Thrombocytopenia Acute
--- NOTE | 2016-10-04 11:49 | PCMIDPN ---
Assessment/Plan: Assessment/Plan: * Multilobar pneumonia with immunosuppression due to hyper IgM with profound decrease in IgG on maintenance IVIG: Patient readmitted with multilobar pneumonia despite IVIG infusions. Blood cultures remain negative which may be encouraging as prior episodes of pneumonia associated with bacteremia. Await immunoglobulin levels which were obtained prior to IVIG infusion to determine if maintenance IVIG providing adequate levels over time. Continue cefepime and azithromycin. Follow up blood and sputum cultures over time as well as serologic studies. Discussed with patient that she may require maintenance antibiotic therapy with goal of preventing additional pneumonia - she currently would like to try dietary approach rather than proceeding with antibiotic suppression. 10/04/16 11:45 10/04/16 11:48 Subjective: Feels significantly improved. No further chills. Some cough present. Objective: Vital Signs Temp Pulse Resp BP Pulse Ox 36.6 C 77 20 108/69 92 10/04/16 06:06 10/04/16 07:56 10/04/16 07:56 10/04/16 07:56 10/04/16 07:56 Microbiology 10/03/16 17:15 - Final Sputum, Expectorated Laboratory Results 10/04/16 06:15 10/03/16 05:20 10/03/16 10/04/16 10/05/16 05:59 05:59 05:59 Intake Total 2959 4042 Output Total 1350 1500 Balance 1609 2542 Cefepime # 2 Azithromycin # 2 (Levofloxacin on AUG but patient has not been receiving as she does not want to have this therapy currently) Blood cultures x2 no growth Sputum with polymicrobial Gram stain and culture pending CT reviewed showing multilobar pneumonia with most prominent dense consolidation affecting the right side Respiratory virus PCR negative Influenza PCR negative Urine Streptococcus pneumoniae and Legionella antigens pending Mycoplasma antibody pending Coccidioides antibody pending/urine histoplasma antigen pending Immunoglobulin levels pending - Physical Exam General Appearance: alert, no apparent distress EENT: pharynx normal, No scleral icterus, No conjunctival petechiae Respiratory: crackles (Left base), bronchial breath sounds (Right mid lung field ) Neck: supple Cardiac/Chest: regular rate, rhythm, systolic murmur (2/6 left upper sternal border) Extremities: pedal edema, No inflammation Abdomen: non-tender, No distended Skin: No rash ICD10 Worksheet Patient Problems: Problems Problem Status Onset ESBL (extended spectrum beta-lactamase) producing bacteria infection Acute Hypoxia Acute Pneumonia Acute Sarcoidosis Acute Sepsis Acute MRSA - Methicillin resistant Staphylococcus aureus infection Active Pleural effusion Acute Respiratory failure Acute Thrombocytopenia Acute
[2016-10-04 17:47] LABS: MYCOPLASMA PNUEMONIAE IGM 0.49 index (<=0.90)
[2016-10-05] MEDS: CEFEPIME HCL 2 GM in D5W 100 ML IV SCH (05:20)
[2016-10-05 05:28] VITALS: TEMP 97.9
[2016-10-05 05:42] LABS: ADD DIFF? NO; ADD MORPH? NO; ADD SCAN? NO; ATYPICAL LYMPHOCYTE FLAG 60 (0-99); FRAGMENT RBC FLAG 20 (0-99); HEMATOCRIT 30.8 % (38.0-47.0); HEMOGLOBIN 9.1 g/dL (12.6-16.3); LEFT SHIFT FLG 10 (0-99); LIPEMIA HEMOLYSIS FLAG 70 (0-99); MEAN CELL HEMOGLOBIN 23.5 pg (27.9-34.1); MEAN CELL HEMOGLOBIN CONCENTR. 29.5 g/dL (32.4-36.7); MEAN CELL VOLUME 79.6 fL (81.5-99.8); PLATELET CLUMPS FLAG 10 (0-99); PLATELET COUNT 91 10^3/uL (150-400); RED BLOOD CELL COUNT 3.87 10^6/uL (4.18-5.33); RED CELL DISTRIBUTION WIDTH 18.8 % (11.5-15.2)
[2016-10-05 07:41] VITALS: RESP 14
[2016-10-05] MEDS: OMEGA-3 FATTY ACIDS 1,000 MG CAP PO SCH (07:43)
[2016-10-05] MEDS: predniSONE 20 MG TAB PO SCH (07:43)
[2016-10-05] MEDS: ENOXAPARIN 40 MG/0.4 ML SYR SC SCH (07:43)
[2016-10-05] MEDS: AZITHROMYCIN 250 MG TAB PO SCH (07:43)
[2016-10-05 08:41] LABS: IMMUNOGLOBULIN A <2 mg/dL (61 - 356); IMMUNOGLOBULIN G 275 mg/dL (767 - 1590); IMMUNOGLOBULIN M 2120 mg/dL (37 - 286)
[2016-10-05 12:35] VITALS: BP 114/68; PULSE 83; O2SAT 94
--- NOTE | 2016-10-05 18:03 | GDS ---
[f rep st] DISCHARGE SUMMARY DISCHARGE DIAGNOSES: 1. Sepsis, secondary to multilobar pneumonia. Sepsis physiology has resolved. 2. History of recurrent pneumonia. 3. History of immunosuppression with low IgG levels, on maintenance IVIG. 4. History of possible sarcoid manifesting with splenomegaly. 5. Pancytopenia, likely secondary to splenomegaly. CONSULTANTS: Dr. Penelope Nichols, infectious disease. IMAGING STUDIES/PROCEDURES: 1. Chest x-ray on admission October 02, 2016, showed bilateral lower lobe interstitial lung disease w ith interval progression of right lower lobe consolidation, suspicious for pneumonia. 2. CT angiogram October 02, 2016, was negative for pulmonary embolism. Again showed extensive pulmon coreen consolidation, most severe on the right, as well as findings consistent with sarcoidosis. HISTORY: For details, please see dictated history and physical dated October 02, 2016. In brief, the patient is a 30-year-old female with a history of IgG deficiency and recurrent pneumonia who presen dori to the hospital with fever, chills, and productive cough. She was admitted to the hospital for further management. HOSPITAL COURSE: The patient was admitted to step-down unit. She was initially diagnosed with gretel re sepsis, based on her fever, tachycardia, and tachypnea, and lactic acidosis. She was treated wit h aggressive IV fluids and empiric antibiotics. Infectious Disease consult was obtained. She recei kit 3 days of cefepime with azithromycin. She was continued on her usual oral prednisone dose for h er history of sarcoid. She was due for her IVIG during this hospitalization. Immunoglobulin levels were obtained prior to initiation of her IVIG. Her IgG level was 275, and her IgM level was 2120. Her condition improved clinically. She was weaned off oxygen. She has remained afebrile for greater than 48 hours. DISPOSITION: Patient was discharged home in stable condition. DISCHARGE MEDICATIONS: Please see besomebody. for complete updated outpatient medication list. New medications on discharge include Avelox 400 mg p.o. daily #7 with no refills. FOLLOWUP: Patient is to follow up with Dr. Bo Grullon at the [facility] in 1 week. She is also instructed to follow up with Dr. Casper, her director regulatory affairs at [facility]. /[id number]/MODL
[2016-10-08 15:58] LABS: COCCIDIOIDES ANTIBODY SERUM See Comments (Negative); COCCIDIOIDES IGG IMMUNODIF Negative (Negative); COCCIDIOIDES IGM IMMUNODIF Negative (Negative)
== END 2016-10-05 14:35 | disposition home or self-care (01) | DRG 871 ==
LOC: F2N 21:06
PROVIDERS: ADMIT Internal Medicine; ATTEND Internal Medicine
DX: A41.9 Sepsis, unspecified organism (principal); J18.8 Other pneumonia, unspecified organism; D61.818 Other pancytopenia; D80.3 Selective deficiency of immunoglobulin G [IgG] subclasses; D86.9 Sarcoidosis, unspecified; R65.20 Severe sepsis without septic shock; Z87.01 Personal history of pneumonia (recurrent)
CPT/HCPCS: 82784-90; 86635-90; 86738-90; 87385-90; 87449-90; 96374; J0692; J1200; J1459; J1650; J1956; Q9967